=== PATIENT | male | born 1965 | race Caucasian/White ===

== ENCOUNTER 2017-03-05 19:19 | Emergency (ER) | payer SELFPAY ==
--- NOTE | 2017-03-05 19:56 | UC ---
Throat Pain/Nasal Lázaro HPI - HPI Summary HPI Summary: on and off for 1 month and worsening this weekend cough sinus and nasal pain and congestion with thick green drainage - History of Current Complaint Chief Complaint: UCGeneralIllness Stated Complaint: SINUS CONGESTION Time Seen by Provider: 03/05/17 19:45 Hx Obtained From: Patient Onset/Duration: Gradual Onset, Lasting Weeks - 4, Worse Since - past 5 days Severity: Moderate Pain Intensity: 4 Pain Scale Used: 0-10 Numeric Cough: Productive Associated Signs & Symptoms: Positive: Sinus Discomfort, Nasal Discharge - Allergies/Home Medications Allergies/Adverse Reactions: Allergies Allergy/AdvReac Type Severity Reaction Status Date / Time Cimetidine [From Tagamet HB] Allergy Fatigue Verified 03/05/17 19:28 Ciprofloxacin [From Cipro] Allergy Anxiety Verified 03/05/17 19:28 Metoclopramide [From Reglan] Allergy GI Upset Verified 03/05/17 19:28 dander Allergy Congestion Uncoded 03/05/17 19:28 Home Medications: Home Medications Atenolol [Tenormin 25 MG] 25 mg PO DAILY 03/05/17 [History Confirmed 03/05/17] Bupropion XL (NF) [Wellbutrin XL (NF)] 300 mg PO DAILY 03/05/17 [History Confirmed 03/05/17] Clopidogrel Bisulfate [Plavix] 75 mg PO 03/05/17 [History Confirmed 03/05/17] Lisinopril [Zestril 10 MG-] 10 mg PO DAILY 03/05/17 [History Confirmed 03/05/17] Mycophenolate Mofetil [Cellcept] 500 mg PO 03/05/17 [History Confirmed 03/05/17] Nifedipine [Adalat cc] 60 mg PO 03/05/17 [History] Pantoprazole TAB (NF) [Protonix TAB (NF)] 40 mg PO DAILY 03/05/17 [History Confirmed 03/05/17] Sertraline HCl [Zoloft] 100 mg PO 03/05/17 [History] Sirolimus [Rapamune] 1 mg PO 03/05/17 [History] Trazodone HCl 100 mg PO 03/05/17 [History] predniSONE TAB* [Deltasone TAB*] 1 mg PO DAILY 03/05/17 [History Confirmed 03/05] PMH/Surg Hx/FS Hx/Imm Hx Previously Healthy: No Cardiovascular History Of: Reports: Hypertension - Surgical History Surgical History: Yes Surgery Procedure, Year, and Place: 2 kidney transplants 1995, 1997 - Family History Family History: no reported cardiovascular nissues in family lineage - Social History Occupation: Employed Full-time Lives: With Family Alcohol Use: Daily Substance Use Type: None Smoking Status (MU): Current Some Day Smoker - Immunization History Most Recent Influenza Vaccination: 2014 Most Recent Pneumonia Vaccination: 2014 Review of Systems Constitutional: Negative Skin: Negative Eyes: Negative ENT: Ear Ache, Nasal Discharge Respiratory: Cough Cardiovascular: Negative Gastrointestinal: Negative Genitourinary: Negative Motor: Negative Neurovascular: Negative Musculoskeletal: Negative Neurological: Headache - sinuis Psychological: Negative All Other Systems Reviewed And Are Negative: Yes Physical Exam Triage Information Reviewed: Yes Appearance: Well-Appearing, No Pain Distress, Well-Nourished Vital Signs: Initial Vital Signs Temp 99.1 F 03/05/17 19:31 Pulse 85 03/05/17 19:31 Resp 16 03/05/17 19:31 BP 145/88 03/05/17 19:31 Pulse Ox 97 03/05/17 19:31 Vital Signs Reviewed: Yes Eye Exam: Normal Eyes: Positive: Conjunctiva Clear ENT Exam: Normal ENT: Positive: Normal ENT inspection, Hearing grossly normal, Pharynx normal, TMs normal. Negative: Nasal congestion, Nasal drainage, Tonsillar swelling, Tonsillar exudate, Trismus, Muffled/hoarse voice Dental Exam: Normal Neck exam: Normal Neck: Positive: Supple, Nontender, No Lymphadenopathy Respiratory Exam: Normal Respiratory: Positive: Chest non-tender, Lungs clear, Normal breath sounds, No respiratory distress, No accessory muscle use Cardiovascular Exam: Normal Cardiovascular: Positive: RRR, No Murmur, Pulses Normal, Brisk Capillary Refill Musculoskeletal Exam: Normal Musculoskeletal: Positive: Strength Intact, ROM Intact, No Edema Neurological Exam: Normal Neurological: Positive: Alert, Muscle Tone Normal Psychological Exam: Normal Psychological: Positive: Age Appropriate Behavior Skin Exam: Normal Throat Pain/Nasal Course/Dx - Course Assessment/Plan: Sinusitis-flanase, Augmentin, robitussin, increase fluids, nicotines cesation information - Differential Dx/Diagnosis Differential Diagnosis/HQI/PQRI: Laryngitis, Pharyngitis, Sinusitis, URI Provider Diagnoses: Sinuisitis, Nicotine dependant Discharge - Discharge Plan Condition: Stable Disposition: HOME Prescriptions: Amoxicillin/Clavulanate TAB* [Augmentin TAB 875*] 875 mg PO BID #20 tab Fluticasone NASAL SPRAY 50MCG* [Flonase NASAL SPRAY 50MCG*] 2 spray BOTH NARES DAILY #1 btl Patient Education Materials: Upper Respiratory Infection (ED), Rhinosinusitis ( ED), How to Use Nasal [place] (ED) Referrals: [facility]IAN REFERRAL [Outside] - 2 Weeks
== END 2017-03-05 20:05 | disposition home or self-care (01) ==
LOC: UCEAST 19:19
DX: J32.9 Chronic sinusitis, unspecified (principal); I10 Essential (primary) hypertension; Z94.0 Kidney transplant status; Z88.1 Allergy status to other antibiotic agents; Z88.8 Allergy status to other drugs, medicaments and biological substances; Z72.0 Tobacco use
CPT/HCPCS: 99202; G0463

== ENCOUNTER 2019-11-22 14:33 | Emergency (ER) | payer BC ==
--- OUTSIDE RECORDS SUMMARY | 2019-11-22 14:56 | XMS REPORT | Continuity of Care Document ---
:1965 External Reference #:[id number] Author Name Kennedi Subramanian MD (transmitted by agent of provider Salina Shipman) Address [address], [place] [address] Care Team Providers Name Role Phone Chris Forrester MD - Nephrology Care Team Information Preanalytics Team Lead [phone] Lashawn Brand MD - Vascular Surgery Care Team Information Preanalytics Team Lead [phone] Eduard Go MD - Gastroenterology Care Team Information Preanalytics Team Lead Daquan Nam MD - Dermatology Care Team Information Preanalytics Team Lead [phone] Zachary Sahu MD - Hematology Care Team Information Preanalytics Team Lead Belkis Winslow MD - Internal Medicine Care Team Information Preanalytics Team Lead [phone] Problems Active Problems Provider Date Essential hypertension Ghanshyam Kapadia M.D. Onset: 03/21/2017 Transplant of kidney Ghanshyam Kapadia M.D. Onset: 03/21/2017 Deep venous thrombosis of upper extremity Ghanshyam Kapadia M.D. Onset: 03/21 Mild major depression, single episode Ghanshyam Kapadia M.D. Onset: 2016 Allergic rhinitis Ghanshyam Kapadia M.D. Onset: 09/23/2017 Psychogenic impotence Ghanshyam Kapadia M.D. Onset: 09/23/2017 Mild recurrent major depression Ghanshyam Kapadia M.D. Onset: 01/12/2018 Gastroesophageal reflux disease Ghanshyam Kapadia M.D. Onset: 01/12/2018 Pure hyperglyceridemia Ghanshyam Kapadia M.D. Onset: 07/16/2018 Social History Type Date Description Comments Sex Unknown Tobacco Use Start: Unknown Patient has never smoked Smoking Status Reviewed: 10/22/19 Patient has never smoked Allergies, Adverse Reactions, Alerts Active Allergies Reaction Severity Comments Date Reglan Nausea and Vomiting Mild 03/21/2017 Tagamet flu like symptoms Moderate 03/21/2017 Cipro anxiety/paic attacks Moderate hallucinations 03/21/2017 Gemfibrozil myalgias 03/23/2019 Reglan 10/12/2019 Cipro 10/12/2019 Tagamet 10/12/2019 Medications Active Medications SIG Qnty Indications Ordering Date Provider Amoxicillin/Clavulanat take 1 tab by 10tabs J01.90 Kennedi Subramanian 2018 e Potassium mouth every 12 875-125mg hours for 5 days Tablets Lisinopril 1 by mouth every 90tabs I10 Rabia Harp MD 08/31/2019 10mg Tablets day Trazodone HCL take 1 tablet by 90tabs Rabia Harp MD 03/23/2019 150mg mouth at bedtime Tablets Mycophenolate Mofetil 2 by mouth twice 360tabs Rabia Harp MD 03/23/2019 a day 500mg Tablets Xarelto 1 by mouth every 90tabs Belkis Winslow MD 03/23/2019 20mg Tablets day Nifedipine ER take one tablet 90tabs Rabia Harp MD 03/23/2019 90mg by mouth every Tablets ER 24HR day Prednisone 1 by mouth every 90tabs Rabia Harp MD 03/23/2019 5mg Tablets day Sirolimus take 4 tablets 360tabs Rabia Harp MD 03/23/2019 1mg Tablets daily Pantoprazole Sodium 1 by mouth every 90tabs Rabia Harp MD 03/23/[address] Fluticasone Propionate 2 sprays each 48gm Rabia Harp MD 03/23/2019 nostril daily as 50mcg/Act Suspension needed Sertraline HCL 1 by mouth every 90tabs Rabia Harp MD 03/23/2019 100mg day Tablets Tadalafil take one tablet 10tabs Belkis Winslow MD 03/23/2019 20mg Tablets 1 hour before sex, not more than once every 3 days Bupropion 1 by mouth every 90tabs Rabia Harp MD 03/23/2019 Hydrochloride ER (XL) day 300mg Tablets ER 24HR Atenolol Take 1 Tablet 90tabs Belkis Winslow MD 03/23/2019 25mg Tablets Daily Aspir-81 1 by mouth every Unknown 81mg Tablets DR day Preservision Areds Unknown Tablets B Complete 1 by mouth every Unknown Tablets day Ginkgo Biloba 1 by mouth twice Unknown 60mg a day Tablets Fish Oil 1 by mouth twice Unknown 1200mg Capsules daily Vitamin C 1 by mouth every Unknown 500mg Capsules day Calcium 600+D 1 by mouth a day Unknown [id number] Tablets History Medications Losartan Potassium 1 by mouth every 30tabs I10 Belkis Winslow MD 07/13/2019 - 50mg day 08/31/2019 Tablets Tetanus,Unspecified Unknown Injection Immunizations CPT Code Status Date Vaccine Reaction Lot # [id number] Given 08/31/2019 Influenza Virus Vaccine, No immediate reaction [id number] Quadrivalent ([id number]), Derived From Cell 93216 Given 08/30/2018 Influenza Virus Vaccine, Quadrivalent, Split, Preservative Free [id number] Given 01/12/2018 Tetanus And Diptheria (Td) [id number] For Adult Use Preservative Free 39746 Given 09/01/2017 Influenza Virus Vaccine, Quadrivalent, Split, Preservative Free Vital Signs Date Vital Result Comment 10/22/2019 3:05pm Height 71 inches 5'11" Weight 192.00 lb Heart Rate 76 /min BP Systolic 124 mmHg BP Diastolic 80 mmHg Body Temperature 98.5 F O2 % BldC Oximetry 96 % BMI (Body Mass Index) 26.8 kg/m2 08/31/2019 9:14am Height 71 inches 5'11" Weight 193.00 lb Heart Rate 70 /min BP Systolic Sitting 125 mmHg BP Diastolic Sitting 83 mmHg Body Temperature 97.2 F O2 % BldC Oximetry 94 % BMI (Body Mass Index) 26.9 kg/m2 Results Description No Information Available Procedures Date Code Description Status 11/17/2017 [id number] Colonoscopy Completed 10/14/2017 547226232 Bone Mineral Density Test Completed Medical Devices Description No Information Available Encounters Type Date Location Provider Dx Diagnosis Office Visit 08/31/2019 [facility] Internal Belkis Winslow MD I10 Essential ( primary[facility] En[facility] for [facility] Office Visit 07/13/2019 10:00a [facility] Internal Belkis Winslow, I10 Essential ( primary) Medicine - [facility] hypertension Office Visit 06/15/2019 10:20a [facility] Internal Belkis Winslow, F33.0 Major depressive Medicine - [facility] MD disorder, recurrent, mild E78.5 Hyperlipidemia, unspecified I10 Essential (primary) hypertension Z94.0 Kidney transplant status K21.9 Gastro-esophageal reflux disease without esophagitis I82.622 Acute embolism and thrombosis of deep veins of l up extrem N52.1 Erectile dysfunction due to diseases classified elsewhere Assessments Date Code Description Provider 10/22/2019 J01.90 Acute sinusitis, unspecified Kennedi Subramanian MD 08/31/2019 I10 Essential (primary) hypertension Belkis Winslow MD 08/31/2019 Z23 Encounter for immunization Belkis Winslow MD 07/13/2019 I10 Essential (primary) hypertension Belkis Winslow MD 06/15/2019 F33.0 Major depressive disorder, recurrent, mild Belkis Winslow MD 06/15/2019 E78.5 Hyperlipidemia, unspecified Belkis Winslow MD 06/15/2019 I10 Essential (primary) hypertension Belkis Winslow MD 06/15/2019 Z94.0 Kidney transplant status Belkis Winslow MD 06/15/2019 K21.9 Gastro-esophageal reflux disease without Belkis Winslow MD esophagitis 06/15/2019 I82.622 Acute embolism and thrombosis of deep veins of Belkis Winslow MD left upper extremity 06/15/2019 N52.1 Erectile dysfunction due to diseases Belkis Winslow MD classified elsewhere Plan of Treatment Future Appointment(s):01/04/2020 9:40 am - Belkis Winslow MD at [facility] 9[facility]00 am - Belkis Winslow MD at [facility] Internal Medicine - [facility]10/22/2019 - Kennedi Subramanian MDJ01.90 Acute sinusitis, unspecifiedNew Medication:Amoxicillin/Clavulanate Potassium 875-125 mg - take 1 tab by mouth every 12 hours for 5 days Functional Status Description No Information Available Mental Status Description No Information Available Referrals Description No Information Available
--- OUTSIDE RECORDS SUMMARY | 2019-11-22 14:56 | XMS REPORT | Summary of Care ---
:1965 Author Organization [facility] Address [address] [place] [address] Care Team Providers Name Role Phone Ghanshyam Kapadia MD Primary Care Provider Reason for Visit Reason Comments Follow-up Encounter Details Date Type Department Care Team Description 09/24/2019 Office Visit [facility] Mirella Levine Arterial embolus and thrombosis of upper extremity (Primary Dx); Associates Johana FLORES, INTERNAL SECURITY MANAGER Radial artery occlusion, left Department of Surgery, [facility] [address] [facility] Division of Vascular [address] [place] [address] Endovascular Services [phone] [place] [address] Allergies Active Allergy Reactions Severity Noted Date Comments Ciprofloxacin Anxiety Low 04/17/2017 Hallucinations Metoclopramide Nausea And Vomiting 04/17/2017 Cimetidine 04/17/2017 Flu like symptoms documented as of this encounter (statuses as of 09/24/2019) Medications Medication Sig Dispensed Refills Start Date End Date Status predniSONE (DELTASONE) 1 Take 1 mg by 0 Active MG tablet mouth daily sirolimus (RAPAMUNE) 1 Take 2 mg by 0 Active MG tablet mouth daily MYCOPHENOLATE MOFETIL PO Take 500 mg by 0 Active mouth atenolol (TENORMIN) 25 Take 25 mg by 0 Active MG tablet mouth daily lisinopril Take 10 mg by 0 Active (PRINIVIL,ZESTRIL) 10 MG mouth daily tablet NIFEdipine (ADALAT CC) Take 90 mg by 0 Active 90 MG 24 hr tablet mouth daily sertraline (ZOLOFT) 50 Take 50 mg by 0 Active MG tablet mouth daily BUPROPION HCL ER, SR, PO Take 150 mg by 0 Active mouth TRAZODONE HCL PO Take 150 mg by 0 Active mouth CLOPIDOGREL BISULFATE PO Take 75 mg by 0 Active mouth daily aspirin 81 MG tablet Take 81 mg by 0 Active mouth daily Rivaroxaban (XARELTO) 20 Take 20 mg by 0 Active MG TABS mouth daily PANTOPRAZOLE SODIUM PO Take by mouth 0 Active daily documented as of this encounter (statuses as of 09/24/2019) Active Problems Problem Noted Date Essential (primary) hypertension 03/21/2017 Major depressive disorder, single episode, mild 03/21/2017 History of kidney transplant 03/21/2017 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/10/2016 Overview: left arm documented as of this encounter (statuses as of 09/24/2019) Social History Tobacco Use Types Packs/Day Years Used Date Never Smoker 0 Smokeless Tobacco: Never Used Alcohol Use Drinks/Week oz/Week Comments Yes ocassionally Sex Assigned at Date Recorded Not on file Job Start Date Occupation Industry Not on file Not on file Not on file Travel History Travel Start Travel End No recent travel history available. documented as of this encounter Last Filed Vital Signs Vital Sign Reading Time Taken Comments Blood Pressure 137/89 09/24/2019 10:57 AM EST Pulse 70 09/24/2019 10:57 AM EST Temperature 37.1 09/24/2019 10:57 AM EST C (98.7 F) Respiratory Rate 18 09/24/2019 10:57 AM EST Oxygen Saturation 95% 09/24/2019 10:57 AM EST Inhaled Oxygen Concentration - - Weight 83.9 kg (185 lb) 09/24/2019 10:57 AM EST Height 180.3 cm (5' 11") 09/24/2019 10:57 AM EST Body Mass Index 25.8 09/24/2019 10:57 AM EST documented in this encounter Progress Notes Mirella Levine NP - 09/24/2019 10:00 AM EST Reason for Visit: 9 month follow up HPI: Chris Beal is a 54 y.o.male a 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 He is s/p LUE AVF in 1984, s/p thrombosis of the AVF in 2010 who subsequently developed hand ischemia s/p thrombectomy and arterial reconstruction in [place], [place]. At this time he was told he had 1 vessel run off to the left hand and was started on Plavix. Most recently he underwent an arterial thrombosis of upper extremity and thromboembolectomy of the left brachial artery which was performed in [place] in 2017. Prior to leaving [place] , he had an arterial US and there was concern of thrombus formation. At thistime he was started on Xaralto. He has in been worked up for a hypercoagulable state after he had the first LUE thrombosis which was negative. He presents to the office today for a 9 month follow up of his LUE with an arterial duplex prior to his appointment today. He states he's been doing ok. Is complaining that his left hand has been falling asleep a lot more. He states his job has been requiring a lot more typing and computer work then before. He states the moment he picks up his hands from typing the tingling goes away. He states this also occurs while he is driving and has his elbow bent. He does also have a diagnosis of carpal tunnel in that left wrist. He feels this is manageable. He is currently still taking the ASA and Xarelto. Past Medical History: Diagnosis Date 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 2017 left arm Depression Essential hypertension GERD (gastroesophageal reflux disease) Hx of kidney transplant Past Surgical History: Procedure Laterality Date KIDNEY TRANSPLANT Medications: Home Medications Medication Sig aspirin 81 MG tablet Take 81 mg by mouth daily atenolol (TENORMIN) 25 MG tablet Take 25 mg by mouth daily BUPROPION HCL ER, SR, PO Take 150 mg by mouth lisinopril (PRINIVIL,ZESTRIL) 10 MG tablet Take 10 mg by mouth daily MYCOPHENOLATE MOFETIL PO Take 500 mg by mouth NIFEdipine (ADALAT CC) 90 MG 24 hr tablet Take 90 mg by mouth daily PANTOPRAZOLE SODIUM PO Take by mouth daily predniSONE (DELTASONE) 1 MG tablet Take 1 mg by mouth daily Rivaroxaban (XARELTO) 20 MG TABS Take 20 mg by mouth daily sertraline (ZOLOFT) 50 MG tablet Take 50 mg by mouth daily sirolimus (RAPAMUNE) 1 MG tablet Take 2 mg by mouth daily TRAZODONE HCL PO Take 150 mg by mouth CLOPIDOGREL BISULFATE PO Take 75 mg by mouth daily Allergies: Reglan [metoclopramide]; Tagamet [cimetidine]; and Ciprofloxacin Family History Problem Relation Age of Onset Cancer Mother Kidney disease Other Social History Tobacco History Smoking Status Never Smoker Smokeless Tobacco Use Never Used Alcohol History Alcohol Use Status Yes Comment ocassionally Drug Use Drug Use Status Not Asked Sexual Activity Sexually Active Not Asked Activities of Daily Living Not Asked ROS: Constitutional: Denies fever, chills, fatigue, and unexpected weight change HEENT: Denies visual difficulties, hearing is good Respiratory: Denies cough,shortness of breath, wheezing, chronic cough or sputum production, no hemoptysis Cardiovascular: Denies chest pain or pressure, palpitations, or leg swelling Gastrointestinal: Denies nausea, vomiting, abdominal pain, diarrhea, constipation or blood in the stool Genitourinary: Denies dysuria, urgency, frequency, hematuria, and difficulty urinating Skin: Denies rashes or lesions Extremities/Musculoskeletal: Reports tingling of the LUE. Denies muscle weakness , numbness, or back pain Neurological: Denies dizziness, seizures, difficulty with speech, weakness, or numbness. Negative for TIA or CVA Hematological: Denies bruising easily or anemia Vitals: Vitals: 09/24/19 1057 BP: 137/89 Pulse: 70 Resp: 18 Temp: 37.1 C (98.7 F) SpO2: 95% Physical Exam: General appearance: Alert, appears stated age, cooperative and no distress, ambulated independently into exam room. Head: Normocephalic, without obvious abnormality, atraumatic Eyes: Negative findings: conjunctivae and sclerae normal Lungs: Respirations unlabored on room air. Cardiac: Normal rate and rhythm. Extremities: Upper: No edema noted of the upper extremities. There is no cyanosis or rubor. There isgood capillary refill. No tissue loss noted. Lower: No edema noted of the BLE. Bilateral feet are warm with no cyanosis or rubor. No tissue loss. Motor and sensory function intact. Pulses: Doppler radial, ulnar and a the superficial mera arch of the left hand. Palpable DP, PT ofthe BLE. Skin: Skin color, texture, turgor normal. No rashes. Neuro: Alert and oriented x3. Speech clear and appropriate. Mood and Affect: Pleasant and appropriate Imaging and other Diagnostics: 09/10/19 Left Upper Extremity Duplex done at [facility]: Left Subclavian- Patent PSV 171cm/s Mid portion 111cm/s Distal portion 73cm/s Axillary artery is patent, brachial artery is patent, the antecubital artery is patent. Ulnar artery-Patent PSV 143cm/s Midportion 65cm/s Distal portion 135cm/s The radial artery is occluded. Impression: Radial artery occlusion. The remainder of the left upper extremity arterial system is patent. Overall no changes noted. Assessment: 1. Arterial embolus and thrombosis of upper extremity 2. Radial artery occlusion, left Plan: Chris Beal presents to the office for his 9 month follow up of arterial embolus of the left upper extremity. Chris is doing well and states he has noticed more tingling in his left hand as his jobrequires more computer work and typing. His arterial duplex shows no changes. His left radial arteryremains occluded while the remainder of his arterial system remains patent. On exam he has good movement and blood flow to the hand with good capillary refill. He should continue his Xarelto and ASA. Iwill see him back with a repeat arterial duplex of the LUE in 1 year. Plan was discussed with Dr. Brand. ISIDRO Austin Date: 09/24/2019 Time: 12:36 PM 12: 40 PM ESTdocumented in this encounter Plan of Treatment Date Type Specialty Care Team Description 09/29/2020 Office Visit Vascular Surgery Mirella Levine NP [address] [place] [address] [phone] Health Maintenance Due Date Last Done Comments Hepatitis C Screening (B. 1965 [id number]) MMR Vaccines (1 of 1 - Standard 1965 series) DTaP,Tdap,and Td Vaccines (1 - 1971 Tdap) HIV Screening 1977 Colon Cancer Screening 10 yrs 2014 Influenza Vaccine 08/10/2019 Pneumococcal Vaccine: 65+ Years (1 2029 of 2 - PCV13) HIB Vaccines Aged Out No longer eligible based on patient's age to complete this topic Hepatitis A Vaccines Aged Out No longer eligible based on patient's age to complete this topic Hepatitis B Vaccines Aged Out No longer eligible based on patient's age to complete this topic IPV Vaccines Aged Out No longer eligible based on patient's age to complete this topic Pneumococcal Vaccine: Pediatrics Aged Out No longer eligible based on (0 to 5 Years) and At-Risk patient's age to complete this Patients (6 to 64 Years) topic Varicella Vaccines Aged Out No longer eligible based on patient's age to complete this topic documented as of this encounter Results Not on filedocumented in this encounter Visit Diagnoses Diagnosis Arterial embolus and thrombosis of upper extremity - Primary Embolism and thrombosis of arteries of upper extremity Radial artery occlusion, left Embolism and thrombosis of unspecified artery documented in this encounter
--- OUTSIDE RECORDS SUMMARY | 2019-11-22 14:56 | XMS REPORT | Continuity of Care Document ---
:1965 External Reference #:[id number] Author Name Nesha Cartwright N.P. (transmitted by agent of provider Chrystal Beal) Address [address], [place] [address] Care Team Providers Name Role Phone Chris Forrester MD - Nephrology Care Team Information Art Objects Repairer Lashawn Brand MD - Vascular Surgery Care Team Information Art Objects Repairer [phone] Eduard Go MD - Gastroenterology Care Team Information Art Objects Repairer Daquan Nam MD - Dermatology Care Team Information Art Objects Repairer Zachary Sahu MD - Hematology Care Team Information Art Objects Repairer [phone] Belkis Winslow MD - Internal Medicine Care Team Information Art Objects Repairer Problems Active Problems Provider Date Essential hypertension [...] Patient has never smoked Smoking Status Reviewed: 11/19/19 Patient has never smoked Allergies, Adverse Reactions, Alerts Active Allergies Reaction Severity Comments Date Reglan Nausea and Vomiting Mild 03/21/2017 Tagamet flu like symptoms Moderate 03/21/2017 Cipro anxiety/paic attacks Moderate hallucinations 03/21/2017 Gemfibrozil myalgias 03/23/2019 Reglan 10/12/2019 Cipro 10/12/2019 Tagamet 10/12/2019 Medications Active Medications SIG Qnty Indications Ordering Date Provider Azithromycin two tabs day 6tabs J20.9 Nesha Cartwright, 11/19/2019 250mg one, one daily N.P. Tablets till gone Benzonatate one by mouth 30caps J20.9 Nesha Cartwright, 11/19/2019 200mg three times N.P. Capsules daily as needed for cough Lisinopril 1 by mouth every 90tabs I10 [...] 600+D 1 by mouth a day Unknown [id number] Tablets History Medications Amoxicillin/Clavulanate take 1 tab 10tabs J01.90 Kennedi 10/22/2019 - Potassium by mouth MD Moris 11/01/2019 875-125mg Tablets every 12 hours for 5 days Losartan Potassium 1 by mouth 30tabs I10 Belkis Winslow 07/13/2019 - 50mg Tablets every day 08/31/2019 Tetanus,Unspecified Unknown Injection Immunizations CPT Code Status Date Vaccine Reaction Lot # [id number] Given 08/31/2019 Influenza Virus Vaccine, No immediate reaction [id number] Quadrivalent ([id number]), Derived From Cell 98545 Given 08/30/2018 Influenza Virus Vaccine, Quadrivalent, Split, Preservative Free 78895 Given 01/12/2018 Tetanus And Diptheria (Td) [id number] For Adult Use Preservative Free 77715 Given 09/01/2017 Influenza Virus Vaccine, Quadrivalent, Split, Preservative Free Vital Signs Date Vital Result Comment 11/19/2019 3:21pm Height 71 inches 5'11" Weight 183.38 lb Heart Rate 100 /min BP Systolic Sitting 108 mmHg BP Diastolic Sitting 68 mmHg Body Temperature 98.8 F O2 % BldC Oximetry 91 % BMI (Body Mass Index) 25.6 kg/m2 10/22/2019 3:05pm Height 71 inches 5'11" Weight 192.00 lb Heart Rate 76 /min BP Systolic 124 mmHg BP Diastolic 80 mmHg Body Temperature 98.5 F O2 % BldC Oximetry 96 % BMI (Body Mass Index) 26.8 kg/m2 Results Description No Information Available Procedures Date Code Description Status 11/17/2017 [id number] Colonoscopy Completed 10/14/2017 [id number] Bone Mineral Density Test Completed Medical Devices Description No Information Available Encounters Type Date Location Provider Dx Diagnosis Office Visit 10/22/2019 [facility] Kennedi Subramanian, J01.90 Acute sinusitis, 3:00p Medicine - [facility] unspecified Office Visit 08/31/2019 [facility] Belkis Winslow MD I10 Essential ( primary) 8:40a Medicine - [facility] hypertension Z23 Encounter for immunization Office Visit 07/13/2019 10:00a [facility] Renee Ramires0 Essential ( primary) Medicine - [facility] hypertension Office Visit 06/15/2019 10:20a [facility] Belkis Winslow, F33.0 [facility] mild E78.5 Hyperlipidemia, unspecified I10 Essential (primary) hypertension Z94.0 Kidney transplant status K21.9 Gastro-esophageal reflux disease without esophagitis I82.622 Acute embolism and thrombosis of deep veins of l up extrem N52.1 Erectile dysfunction due to diseases classified elsewhere Assessments Date Code Description Provider 11/19/2019 J20.9 Acute bronchitis, unspecified Nesha Cartwright, N.P. 10/22/2019 J01.90 Acute sinusitis, unspecified Kennedi Subramanian [...] 9:40 am - Belkis Winslow MD at [facility] - [facility]12/16/2019 9:00 am - Belkis Winslow MD at [facility] - [facility]11/19/2019 - Nesha Cartwright N.P.J20.9 Acute bronchitis, unspecifiedNew Medication:Azithromycin 250 mg - two tabs day one, one daily till goneBenzonatate 200 mg - one by mouth three times daily as needed for coughNew Xrays:Chest PA & Lat 2 VWS, Ordered: 11/19/19Comments:I have sent a prescription to the pharmacy for Azithromycin. Take 2 tablets the first day then 1 tablet daily until they are gone for a total of 5 days. The medicine stays in your system for an additional 5 days. I sent in a prescription for Benzonatate 200 mg.. You may take 1 tablet 3 times daily as you need it for your cough. I am ordering a chest Xray. The office will call you with the result. Functional Status Description No Information Available Mental Status Description No Information Available Referrals Description No Information Available
[2019-11-22 15:59] LABS: Hematocrit 35 % (42-52); Hemoglobin 12.2 g/dL (14.0-18.0); Mean Corpuscular HGB Conc 35 g/dL (31-36); Mean Corpuscular Hemoglobin 31 pg (27-31); Mean Corpuscular Volume 86 fL (80-94); Mean Platelet Volume 7.6 fL (7.4-10.4); Platelet Count 538 10^3/uL (150-450); Red Cell Distribution Width 13 % (10-15); White Blood Count 12.3 10^3/uL (3.5-10.8)
[2019-11-22 16:24] LABS: Troponin I 0.04 ng/mL (<0.03)
[2019-11-22 16:38] LABS: ABS Basophils 0.1 10^3/ul (0-0.2); ABS Eosinophils 0.2 10^3/ul (0-0.6); ABS Lymphocytes 0.8 10^3/ul (1.0-4.8); ABS Monocytes 0.6 10^3/ul (0-0.8); ABS Neutrophils 10.5 10^3/ul (1.5-7.7); Eosinophil % 1.8 %; Lymphocyte % 6.8 %
[2019-11-22 16:49] LABS: ALT 161 U/L (7-52); AST 105 U/L (13-39); Albumin 3.3 g/dL (3.2-5.2); Albumin/Globulin Ratio 0.9 (1-3); Alkaline Phosphatase 353 U/L (34-104); Anion Gap 9 mmol/L (2-11); Blood Urea Nitrogen 18 mg/dL (6-24); C Reactive Protein 167.43 mg/L (<8.01); CO2 Carbon Dioxide 22 mmol/L (22-32); Calcium 9.5 mg/dL (8.6-10.3); Chloride 102 mmol/L (101-111); EGFR African American 93.9 (>60); EGFR Non-African American 77.6 (>60); Globulin 3.8 g/dL (2-4); Glucose 121 mg/dL (70-100); Potassium 4.2 mmol/L (3.5-5.0); Sodium 133 mmol/L (135-145); Total Protein 7.1 g/dL (6.4-8.9)
--- NOTE | 2019-11-22 16:54 | ED ---
Shortness of Breath - HPI Summary HPI Summary: This pt is a 54 Y/O M [facility] with a CC of SOB that occurred earlier today. He states that he has had a cough and a feeling of general weakness since 11/10/2019. He states that he had a fever for the first couple days of the onset at 100+F and was located to his sinuses and caused congestion. He also states a decrease in appetite. He states that he had a CXR from prior to his visit to [facility] and they requested a CT to r/o any CA. He states that he has had episodes of night sweats. He denies any headaches or N/ V. He states that he has been on a Z-pack for the last couple days. He has no aggravating or alleviating symptoms. He has a PMHx of smoking occasionally, double kidney transplants, and HTN. Patient on xarelto. - History of Current Complaint Chief Complaint: EDShortnessOfBreath Time Seen by Provider: 11/22/19 16:39 Hx Obtained From: Patient Onset/Duration: Sudden Onset, Lasting Weeks - 2, Still Present Timing: Constant Current Severity: Mild Aggravating Factors: Nothing Alleviating Factors: Nothing Associated Signs & Symptoms: Negative - headaches or N/V, Cough (Nonproductive) , Fever, Diaphoresis, Nasal Congestion - Allergy/Home Medications Allergies/Adverse Reactions: Allergies Allergy/AdvReac Type Severity Reaction Status Date / Time cimetidine [From Tagamet] Allergy Fatigue Verified 11/22/19 14:53 ciprofloxacin [From Cipro] Allergy Anxiety Verified 11/22/19 14:53 metoclopramide [From Reglan] Allergy GI Upset Verified 11/22/19 14:53 dander Allergy Congestion Uncoded 11/22/19 14:53 Home Medications: Home Medications Benzonatate CAP* [Tessalon 100 MG CAP*] 200 mg PO TID PRN 11/22/19 [History Confirmed 11/22/19] Sertraline* [Zoloft*] 100 mg PO DAILY 11/22/19 [History Confirmed 11/22/19] Tadalafil (NF) [Adcirca (NF)] 20 mg PO DAILY PRN 11/22/19 [History Confirmed ] predniSONE [Prednisone 5 MG TAB] 5 mg PO DAILY 11/22/19 [History Confirmed 11/22] traZODone TAB* [Desyrel TAB*] 150 mg PO BEDTIME 11/22/19 [History Confirmed ] PMH/Surg Hx/FS Hx/Imm Hx Previously Healthy: Yes Cardiovascular History: Reports: Hx Hypertension Respiratory History: Denies: Hx Asthma Musculoskeletal History: Denies: Hx Osteoporosis Sensory History: Reports: Hx Contacts or Glasses Denies: Hx Legally Blind, Hx Deafness Opthamlomology History: Reports: Hx Contacts or Glasses Denies: Hx Legally Blind EENT History: Denies: Hx Deafness - Cancer History Hx Chemotherapy: No Hx Radiation Therapy: No - Surgical History Surgical History: Yes Surgery Procedure, Year, and Place: BI-LAT 2 kidney transplants 1995, 1997; LT FOREARM ARTERIAL SURGERY; - Immunization History Immunizations Up to Date: Yes Infectious Disease History: No Infectious Disease History: Reports: History Other Infectious Disease - measles / child Denies: Traveled Outside the [place] in Last 30 Days - Family History Known Family History: Negative: Hypertension, Diabetes - Social History Occupation: Employed Full-time Lives: Alone Alcohol Use: Occasionally Hx Substance Use: No Substance Use Type: Reports: None Hx Tobacco Use: Yes Smoking Status (MU): Former Smoker Have You Smoked in the Last Year: Yes - States twice Household Exposure: No Review of Systems Positive: Fever - 100 + F, Skin Diaphoresis Positive: Shortness Of Breath, Cough Gastrointestinal: Other - POSITIVE: decreased appetite Negative: Vomiting, Nausea Negative: Headache All Other Systems Reviewed And Are Negative: Yes Physical Exam - Summary Physical Exam Summary: Constitutional: Well-developed, Well-nourished, Alert. (-) Distressed Skin: Warm, Dry HENT: Normocephalic; Atraumatic Eyes: Conjunctiva normal Neck: Musculoskeletal ROM normal neck. (-) JVD, (-) Stridor, (-) Nuchal rigidity Cardio: Rhythm regular, rate normal, Heart sounds normal; Intact distal pulses; Radial pulses are 2+ and symmetric. (-) Murmur Pulmonary/Chest wall: Effort normal. (-) Respiratory distress, (-) Wheezes, + Rales in lower lobes. Abd: Soft, (-) tenderness, (-) Distension, (-) Guarding, (-) Rebound Musculoskeletal: (-) Edema Lymph: (-) Cervical adenopathy Neuro: Alert, Oriented x3 Psych: Mood and affect Normal Triage Information Reviewed: Yes Vital Signs On Initial Exam: Initial Vitals Temp Pulse Resp BP Pulse Ox 97.8 F 90 19 121/85 96 11/22/19 14:47 11/22/19 14:47 11/22/19 14:47 11/22/19 14:47 11/22/19 14:47 Vital Signs Reviewed: Yes Procedures - Sedation Patient Received Moderate/Deep Sedation with Procedure: No Diagnostics - Vital Signs Vital Signs Temp Pulse Resp BP Pulse Ox 11/22/19 16:24 97.6 F 90 18 132/87 96 11/22/19 14:47 97.8 F 90 19 121/85 96 - Laboratory Lab Results: Lab Results 11/22/19 11/22/19 11/22/19 Range/Units 15:45 15:45 15:45 WBC 12.3 H (3.5-10.8) 10^3/uL RBC 4.00 L (4.18-5.48) 10^6 /uL Hgb 12.2 L (14.0-18.0) g/dL Hct 35 L (42-52) % MCV 86 (80-94) fL MCH 31 (27-31) pg MCHC 35 (31-36) g/dL RDW 13 (10-15) % Plt Count 538 H (150-450) 10^3/uL MPV 7.6 (7.4-10.4) fL Neut % (Auto) 85.6 % Lymph % (Auto) 6.8 % Rawlins % (Auto) 5.2 % Eos % (Auto) 1.8 % Baso % (Auto) 0.6 % Absolute Neuts (auto) 10.5 H (1.5-7.7) 10^3/ul Absolute Lymphs (auto) 0.8 L (1.0-4.8) 10^3/ul Absolute Monos (auto) 0.6 (0-0.8) 10^3/ul Absolute Eos (auto) 0.2 (0-0.6) 10^3/ul Absolute Basos (auto) 0.1 (0-0.2) 10^3/ul Absolute Nucleated RBC 0.0 10^3/ul Nucleated RBC % 0.0 Sodium 133 L (135-145) mmol/L Potassium 4.2 (3.5-5.0) mmol/L Chloride 102 (101-111) mmol/L Carbon Dioxide 22 (22-32) mmol/L Anion Gap 9 (2-11) mmol/L BUN 18 (6-24) mg/dL Creatinine 1.00 (0.67-1.17) mg/dL Est GFR ( Amer) 93.9 (>60) Est GFR (Non-Af Amer) 77.6 (>60) BUN/Creatinine Ratio 18.0 (8-20) Glucose 121 H (70-100) mg/dL Lactic Acid 0.8 (0.5-2.0) mmol/L Calcium 9.5 (8.6-10.3) mg/dL Total Bilirubin 0.50 (0.2-1.0) mg/dL AST 105 H (13-39) U/L ALT 161 H (7-52) U/L Alkaline Phosphatase 353 H (34-104) U/L Troponin I 0.04 H* (<0.03) ng/mL C-Reactive Protein 167.43 H (<8.01) mg/L B-Natriuretic Peptide (<=100) pg/mL Total Protein 7.1 (6.4-8.9) g/dL Albumin 3.3 (3.2-5.2) g/dL Globulin 3.8 (2-4) g/dL Albumin/Globulin Ratio 0.9 L (1-3) 11/22/19 Range/Units 15:45 WBC (3.5-10.8) 10^3/uL RBC (4.18-5.48) 10^6 /uL Hgb (14.0-18.0) g/dL Hct (42-52) % MCV (80-94) fL MCH (27-31) pg MCHC (31-36) g/dL RDW (10-15) % Plt Count (150-450) 10^3/uL MPV (7.4-10.4) fL Neut % (Auto) % Lymph % (Auto) % Rawlins % (Auto) % Eos % (Auto) % Baso % (Auto) % Absolute Neuts (auto) (1.5-7.7) 10^3/ul Absolute Lymphs (auto) (1.0-4.8) 10^3/ul Absolute Monos (auto) (0-0.8) 10^3/ul Absolute Eos (auto) (0-0.6) 10^3/ul Absolute Basos (auto) (0-0.2) 10^3/ul Absolute Nucleated RBC 10^3/ul Nucleated RBC % Sodium (135-145) mmol/L Potassium (3.5-5.0) mmol/L Chloride (101-111) mmol/L Carbon Dioxide (22-32) mmol/L Anion Gap (2-11) mmol/L BUN (6-24) mg/dL Creatinine (0.67-1.17) mg/dL Est GFR ( Amer) (>60) Est GFR (Non-Af Amer) (>60) BUN/Creatinine Ratio (8-20) Glucose (70-100) mg/dL Lactic Acid (0.5-2.0) mmol/L Calcium (8.6-10.3) mg/dL Total Bilirubin (0.2-1.0) mg/dL AST (13-39) U/L ALT (7-52) U/L Alkaline Phosphatase (34-104) U/L Troponin I (<0.03) ng/mL C-Reactive Protein (<8.01) mg/L B-Natriuretic Peptide 39 (<=100) pg/mL Total Protein (6.4-8.9) g/dL Albumin (3.2-5.2) g/dL Globulin (2-4) g/dL Albumin/Globulin Ratio (1-3) Result Diagrams: 11/22/19 15:45 11/22/19 15:45 Lab Statement: Any lab studies that have been ordered have been reviewed, and results considered in the medical decision making process. - CT Chest CT CT Interpretation Completed By: Radiologist Summary of CT Findings: Chest CT IMPRESSION: 1. Numerous pulmonary nodules involving all lobes of both lungs as above, highly concerning for metastatic disease or lymphoma. However, the differential includes inflammatory and infectious etiologies such as fungal disease, especially if the patient is immunocompromised. Correlate with clinical history. PET/CT may be helpful. Several lesions would be amenable to percutaneous tissue sampling if indicated. 2. Left upper lobe masslike consolidation which could represent an additional nodule versus postobstructive change/pneumonia. 3. Small right and tiny left pleural effusions. 4. Mediastinal, bilateral hilar, and upper abdominal adenopathy with secondary narrowing of right upper and middle lobe bronchi.. 5. Low-density hepatic lesions which could represent metastatic disease with infectious etiology not excluded. 6. Sternal body contour abnormality, likely representing old fracture. Correlate with clinical exam. Chronic T12 compression deformity. 7. Atrophic kidneys. Reviewed and interpreted by Dr. Stock. - EKG 1631 Cardiac Rate: NL - 78 BPM EKG Rhythm: Sinus Rhythm Summary of EKG Findings: An EKG at 1631 reveals normal sinus rhythm 78, RBBB, nml intervals. No STEMI. Dr. Stock has interpreted this report at 11/22/2019 1636. Course/Dx - Course Course Of Treatment: 54 y/o male w hx kidney transplant x2 p/w fever, chills, nightsweats and abnormal CXR. - Labs notable for mildly inc WBC, elevated LFTs and alk phos. - CT chest shows multiple nodules, concerning for metastatic disease. No clear primary. Will d/w hospitalist (Dr. Salas) for admission vs discharge w close oncologic follow up. - patient updated on CT results - Diagnoses Provider Diagnoses: Pulmonary nodule, Metastatic disease, Pneumonia - Physician Notifications Discussed Care of Patient With: Rosa Salas - At 19:16 Dr. Rosa Salas reviewed the patients case and agrees to admit the patient to [facility]. Time Discussed With Above Provider: 19:16 Instructed by Provider To: Admit As Inpatient Discharge ED - Sign-Out/Discharge Documenting (check all that apply): Patient Departure - Admit - Discharge Plan Condition: Stable Disposition: ADMITTED TO [facility] Prescriptions: Amoxicillin/Clavulanate TAB* [Augmentin TAB 875*] 875 mg PO BID 7 Days #14 tab Patient Education Materials: Needle Biopsy (DC) Print Language: SLOVAK Referrals: Belkis Winslow MD [Primary Care Provider] - Additional Instructions: As tolerated You came to the hospital with an abnormal chest x ray in the setting of sinusitis. You were found to have numerous masses in your lung and a large R sided kidney mass that we believe may be the culprit of a presumed metastatic process. You need to have a biopsy of your R non functioning kidney and we can arrange that in 48 hours from you last dose of aspirin/xarelto. We have contacted Dr. Zachary Sahu whos office will reach out to schedule a biopsy on 11/24/2019. Please hold aspirin and xarelto going home. If you have nausea, vomiting, worsening shortness or breath or fevers please return to the ED. - Billing Disposition and Condition Condition: STABLE Disposition: [facility] - Attestation Statements Document Initiated by Angy: Yes Documenting Scribe: Amy Neri Provider For Whom Angy is Documenting (Include Credential): Mavis Stock MD Scribe Attestation: IArya Susan Amquy, scribed for Mavis Stock MD on 11/23/19 at 0726. Scribe Documentation Reviewed: Yes Provider Attestation: The documentation as recorded by the Arya espinoza Susan Amquy accurately reflects the service I personally performed and the decisions made by Mavis forman MD Status of Scribe Document: Viewed
[2019-11-22] MEDS ORDERED: Iodixanol* (CONTRAST) 320 MG/ML 100 ML SDV IV ONE (18:17)
[2019-11-22] MEDS ORDERED: NS 0.9% 1000 ML** 1,000 ML IV ONE (20:27)
[2019-11-22 21:41] LABS: Troponin I 0.04 ng/mL (<0.03)
[2019-11-22 21:42] LABS: LDH 391 U/L (140-271)
[2019-11-22 22:05] LABS: Activated Partial Thrombo Time 36.8 seconds (26.0-38.0); INR 1.26 (0.82-1.09)
[2019-11-22 22:13] LABS: Uric Acid 5.2 mg/dL (4.4-7.6)
--- NOTE | 2019-11-22 22:27 | CONSULT ---
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 He came to the ED from and repeat CT chest shows "numerous mass like consolidations in DAVID and numerous blt pulm nodules, along with sig paratrachal adenopathy, RP adenopathy and hilar adeneopathy", CTH showed no acute intracranial path, CTAP wet read with V Rads showed enlarged R kidney with ~6cm mass coming off of R transplant kidney with numerous RP and and inguinal nodes. Labs showed Leuk to 12, anemia to 12.2 and plt 538, BMP unremarkable and AST/ ALT and Alk Phos are all elevated, trop mild elevated at 0.04 x2 8 hours apart EKG NSR Pt himself feels well, no decrease in PO intake no need for O2, no difficulty breathing or stridor. Endorses "B" symptoms actually since around thanksgiving with occaisoanl chills and night sweats, denies weight loss changes in PO intake , CP, orthopnea, worseningn edema, nausea, vomiting, SIFUENTES/vision changes. No travel or sick exposures, has been compliant on his immunosuppresant meds. Family History: Findings - Parents healthy and well Social History: Findings - "Retired academic" Works at a farm, lifetime non tob , scant ETOH, never illicits Past Medical History: Findings - As per above Review of Systems - Measurements Intake and Output: Intake and Output Last 24 Hours 11/20/19 11/21/19 11/22/19 11/23/19 06:59 06:59 06:59 06:59 Weight 180 lb - Review of Systems General Comments: As per HPI Objective Vital Signs - 8 hr 11/22/19 11/22/19 11/22/19 14:47 16:24 20:11 Temperature 97.8 F 97.6 F 99.2 F Pulse Rate 90 90 85 Respiratory 19 18 17 Rate Blood Pressure 121/85 132/87 141/87 (mmHg) O2 Sat by Pulse 96 96 95 Oximetry Appearance: V pleasant well appearing man in NAD Eyes: No Scleral Icterus, PERRLA Ears/Nose/Mouth/Throat: NL Teeth, Lips, Gums, Clear Oropharnyx Respiratory: Symmetrical Chest Expansion and Respiratory Effort, Clear to Auscultation Cardiovascular: NL Sounds; No Murmurs; No JVD, RRR Abdominal: NL Sounds; No Tenderness; No Distention, No Hepatosplenomegaly, - - Palpable RLQ mass assumed to be transplant kidney Lymphatic: - - R sided inguinal adenopathy, no cervical or axillary adenopathy Extremities: No Edema Skin: No Rash or Ulcers Neurological: Alert and Oriented x 3, NL Muscle Strength and Tone Result Diagrams: 11/22/19 15:45 11/22/19 15:45 Additional Lab and Data: Lab Results 11/22/19 11/22/19 11/22/19 Range/Units 15:45 15:45 15:45 WBC 12.3 H (3.5-10.8) 10^3/uL RBC 4.00 L (4.18-5.48) 10^6 /uL Hgb 12.2 L (14.0-18.0) g/dL Hct 35 L (42-52) % MCV 86 (80-94) fL MCH 31 (27-31) pg MCHC 35 (31-36) g/dL RDW 13 (10-15) % Plt Count 538 H (150-450) 10^3/uL MPV 7.6 (7.4-10.4) fL Neut % (Auto) 85.6 % Lymph % (Auto) 6.8 % Schleicher % (Auto) 5.2 % Eos % (Auto) 1.8 % Baso % (Auto) 0.6 % Absolute Neuts (auto) 10.5 H (1.5-7.7) 10^3/ul Absolute Lymphs (auto) 0.8 L (1.0-4.8) 10^3/ul Absolute Monos (auto) 0.6 (0-0.8) 10^3/ul Absolute Eos (auto) 0.2 (0-0.6) 10^3/ul Absolute Basos (auto) 0.1 (0-0.2) 10^3/ul Absolute Nucleated RBC 0.0 10^3/ul Nucleated RBC % 0.0 Sodium 133 L (135-145) mmol/L Potassium 4.2 (3.5-5.0) mmol/L Chloride 102 (101-111) mmol/L Carbon Dioxide 22 (22-32) mmol/L Anion Gap 9 (2-11) mmol/L BUN 18 (6-24) mg/dL Creatinine 1.00 (0.67-1.17) mg/dL Est GFR ( Amer) 93.9 (>60) Est GFR (Non-Af Amer) 77.6 (>60) BUN/Creatinine Ratio 18.0 (8-20) Glucose 121 H (70-100) mg/dL Lactic Acid 0.8 (0.5-2.0) mmol/L Calcium 9.5 (8.6-10.3) mg/dL Total Bilirubin 0.50 (0.2-1.0) mg/dL AST 105 H (13-39) U/L ALT 161 H (7-52) U/L Alkaline Phosphatase 353 H (34-104) U/L Troponin I 0.04 H* (<0.03) ng/mL C-Reactive Protein 167.43 H (<8.01) mg/L B-Natriuretic Peptide (<=100) pg/mL Total Protein 7.1 (6.4-8.9) g/dL Albumin 3.3 (3.2-5.2) g/dL Globulin 3.8 (2-4) g/dL Albumin/Globulin Ratio 0.9 L (1-3) 11/22/19 Range/Units 15:45 WBC (3.5-10.8) 10^3/uL RBC (4.18-5.48) 10^6 /uL Hgb (14.0-18.0) g/dL Hct (42-52) % MCV (80-94) fL MCH (27-31) pg MCHC (31-36) g/dL RDW (10-15) % Plt Count (150-450) 10^3/uL MPV (7.4-10.4) fL Neut % (Auto) % Lymph % (Auto) % Schleicher % (Auto) % Eos % (Auto) % Baso % (Auto) % Absolute Neuts (auto) (1.5-7.7) 10^3/ul Absolute Lymphs (auto) (1.0-4.8) 10^3/ul Absolute Monos (auto) (0-0.8) 10^3/ul Absolute Eos (auto) (0-0.6) 10^3/ul Absolute Basos (auto) (0-0.2) 10^3/ul Absolute Nucleated RBC 10^3/ul Nucleated RBC % Sodium (135-145) mmol/L Potassium (3.5-5.0) mmol/L Chloride (101-111) mmol/L Carbon Dioxide (22-32) mmol/L Anion Gap (2-11) mmol/L BUN (6-24) mg/dL Creatinine (0.67-1.17) mg/dL Est GFR ( Amer) (>60) Est GFR (Non-Af Amer) (>60) BUN/Creatinine Ratio (8-20) Glucose (70-100) mg/dL Lactic Acid (0.5-2.0) mmol/L Calcium (8.6-10.3) mg/dL Total Bilirubin (0.2-1.0) mg/dL AST (13-39) U/L ALT (7-52) U/L Alkaline Phosphatase (34-104) U/L Troponin I (<0.03) ng/mL C-Reactive Protein (<8.01) mg/L B-Natriuretic Peptide 39 (<=100) pg/mL Total Protein (6.4-8.9) g/dL Albumin (3.2-5.2) g/dL Globulin (2-4) g/dL Albumin/Globulin Ratio (1-3) Diagnostic Imaging: CT CHEST Patient Name: HIPOLITO HOFFMAN Medical Record#: [id number] DX CXR CHEST PA LAT 2 VWS 11/22/2019 2:11 PM FINDINGS: Lungs: There is mild narrowing of the right upper and middle lobe bronchi secondary to extrinsic compression. 5.0 x 4.4 cm focus of masslike consolidation in the anterior segment of the left upper lobe. Numerous bilateral pulmonary nodules are present involving all lobes ranging from 5 to 2.5 cm in diameter with some of the largest lesions noted in the right lower lobe, some of which have become confluent. Nodules are present along superior aspect right major fissure. There is moderate bronchial wall thickening and peribronchial density in the anterior aspect of the left upper lobe on series 3, image 23. Peripheral masslike consolidation also noted in the right upper lobe measuring approximately 2.5 cm series 3, image 18. Pleural space: There are small right and tiny left layering pleural effusions. Heart: Normal heart size. Trace pericardial fluid may be physiologic. Coronary artery calcifications are present. Aorta:. No aortic aneurysm. Mild calcific plaque in aortic arch Lymph nodes: There is extensive low-density right paratracheal adenopathy with largest individual node measuring 3.5 cm displacing the SVC anteriorly. Mildly enlarged bilateral hilar nodes are present. Confluent subcarinal adenopathy measures 3 cm AP. Mildly enlarged right hilar nodes surround and exert mass effect on the right upper and middle lobe bronchi. Retroperitoneal adenopathy is partially visualized with an aorto caval khoi mass measuring approximately 5.8 x 3.4 cm series 2, image 69. Liver: The liver is demonstrates heterogeneous attenuation and contains several low-density lesions, largest measuring approximately 2.1 cm the posterior segment of the right hepatic lobe. A 1.8 cm lesion in the left hepatic lobe on series 2, image 56 has suggestion of peripheral enhancement. Kidneys and ureters: Atrophic kidneys bilaterally. Bones/joints: No acute fracture or aggressive osseous lesion identified. There is contour abnormality of the superior sternal body which could represent old fracture. Chronic mild T12 compression deformity. CT HEAD Patient Name: HIPOLITO HOFFMAN Medical Record#: [id number] FINDINGS: Brain: There is no acute intracranial hemorrhage, extraaxial collection or midline shift. No mass identified although assessment is limited by lack of IV contrast. Alfaro white differentiation is maintained. Mild periventricular white matter lucency likely represents small vessel ischemic change. Ventricles: Normal configuration. No hydrocephalus. Bones/joints: No acute fracture or aggressive osseous lesion. Sinuses: Mucosal thickening is visible in the left frontal, left sphenoid, right maxillary, and bilateral ethmoid sinuses. Mastoid air cells: No mastoid effusion. Soft tissues: Normal. IMPRESSION: 1. No acute intracranial findings or mass identified. 2. Mild periventricular white matter lucency likely represents chronic small vessel ischemic change. 3. 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 -DDX: Infectious (given immunosuppresion), though his imaging suggests masses outside of the lung as well as diffuse adneopathy, most likely presenting oncologic process-primary renal given R transplant mass, also could consider lymphoma. Pt will need CT guided bx 48 hours from last dose of Xarelto which is 1/15 AM, he is instructed to hold xarelto and asa. His CT scans show no e/o of obstruction in L transplant kidney, adneopathy that obstructs GI tract OR mets to brain. Case discussed with Dr. Sahu over the phone several times over the course of the night. Pt is hemodynamically stable, tolerating diet, ambulating freely and per oncology safe to return to home while they coordinate an outpatient CT guided bx on 11/24. His information was sent via backline and oncology is to reach out tomorrow for first appt in clinic. #Widely metastatic dz with large 6cm mass arising from R transplanted kidney -CT scan NOT done with contrast, discussed with Dr. Sahu who reports no need for CT scan with contrast -Mass is amenable to percutaneous bx in RLQ of abdomen and pt needs to be off Xarelto for 48 hours -He has no sigsn of urinary or GI obsturction or airway compromise #Low grade fevers and sinus dz: Pt has been on azithro x4 days withongoing facial pressure and pain and sinus dz, we discuss changing abx to Augmentin 875 PO BID for addnl 7 days which also will cover any supraimposed bacterial component if CAP or post obstructive PNA is playing a role Overall, with shared decision making, conference in Oncology and discussion with pt who also discussed with his family, he elects to return to home to await outpt bx on 11/24 as there is no clinical emergency for tissue dx that outweighs the risk of interrupting or reversing his AC. Medications changes on d/c: augmentin 875 PO BID Stop Azithro, Stop Xarelto and asa
[2019-11-22] MEDS ORDERED: Amoxicillin/Clavulanate TAB* 875 MG PO ONE (23:22)
[2019-11-23 00:29] VITALS: BP 106/86
[2019-11-24 12:36] LABS: Cytomegalovirus IgG Antibody Negative (Negative); EBV Capsid Ag IgG Ab Positive (Negative); EBV Capsid Ag IgM Ab Negative (Negative); Epstein-Barr Nuclear Antigen Positive (Negative)
== END 2019-11-23 00:05 | disposition short-term general hospital (02) ==
LOC: ED 14:33
DX: R06.02 Shortness of breath (principal); Z79.01 Long term (current) use of anticoagulants; I10 Essential (primary) hypertension; Z94.0 Kidney transplant status; Z79.899 Other long term (current) drug therapy; Z72.0 Tobacco use
CPT/HCPCS: 36415; 70450; 71260; 74176; 80053; 82977; 83605; 83615; 83880; 84484; 84550; 85025; 85610; 85730; 86140; 86644; 86645; 86664; 86665; 87040; 93005; 96360; 99284; A9270-GY; Q9967

== ENCOUNTER 2019-12-04 14:54 | Emergency (ER) | payer BC ==
--- OUTSIDE RECORDS SUMMARY | 2019-12-04 15:07 | XMS REPORT | Continuity of Care Document ---
:1965 External Reference #:[id number] Author Name Liz Olivares MD (transmitted by agent of provider Jimena Lawson) Address [address] , [facility] [address] [place] [address] Care Team Providers Name Role Phone Hipolito Forrester MD - Nephrology Care Team Information Digital Advertising Analyst [phone] Lashawn Brand MD - Vascular Surgery Care Team Information Digital Advertising Analyst Eduard Go MD - Gastroenterology Care Team Information Digital Advertising Analyst [phone] Daquan Nam MD - Dermatology Care Team Information Digital Advertising Analyst [phone] Zachary Sahu MD - Hematology Care Team Information Digital Advertising Analyst Belkis Winslow MD - Internal Medicine Care Team Information Digital Advertising Analyst [phone] Problems Active Problems Provider Date Essential hypertension [...] Patient has never smoked Smoking Status Reviewed: 12/01/19 Patient has never smoked Allergies, Adverse Reactions, Alerts Active Allergies Reaction Severity Comments Date Reglan Nausea and Vomiting Mild 03/21/2017 Tagamet flu like symptoms Moderate 03/21/2017 Cipro anxiety/paic attacks Moderate hallucinations 03/21/2017 Gemfibrozil myalgias 03/23/2019 Reglan 10/12/2019 Cipro 10/12/2019 Tagamet 10/12/2019 Medications Active Medications SIG Qnty Indications Ordering Date Provider Benzonatate as needed 30caps J20.9 Nesha Cartwright, 11/19/2019 200mg N.P. Capsules Lisinopril 1 by mouth every 90tabs I10 [...] 600+D 1 by mouth a day Unknown [id number] Tablets History Medications Azithromycin two tabs day 6tabs J20.9 Nesha Varn, 11/19/2019 - 250mg one, one daily N.P. 11/29/2019 Tablets till gone Amoxicillin/Clavulana take 1 tab by 10tabs J01.90 Kennedi Subramanian, 2018 - te Potassium mouth every 12 11/01/2019 875-125mg hours for 5 Tablets days Losartan Potassium 1 by mouth 30tabs I10 Belkis Winslow MD 07/13/2019 - 50mg every day 08/31/2019 Tablets Tetanus,Unspecified Unknown Injection Immunizations CPT Code Status Date Vaccine Reaction Lot # [id number] Given 08/31/2019 Influenza Virus Vaccine, No immediate reaction [id number] Quadrivalent ([id number]), Derived From Cell 25761 Given 08/30/2018 Influenza Virus Vaccine, Quadrivalent, Split, Preservative Free 67741 Given 01/12/2018 Tetanus And Diptheria (Td) [id number] For Adult Use Preservative Free 74091 Given 09/01/2017 Influenza Virus Vaccine, Quadrivalent, Split, Preservative Free Vital Signs Date Vital Result Comment 12/01/2019 2:08pm Height 71 inches 5'11" Weight 183.00 lb Heart Rate 85 /min BP Systolic Sitting 106 mmHg right arm reg cuff BP Diastolic Sitting 71 mmHg right arm reg cuff O2 % BldC Oximetry 98 % room air BMI (Body Mass Index) 25.5 kg/m2 11/19/2019 3:21pm Height 71 inches 5'11" Weight 183.38 lb Heart Rate 100 /min BP Systolic Sitting 108 mmHg BP Diastolic Sitting 68 mmHg Body Temperature 98.8 F O2 % BldC Oximetry 91 % BMI (Body Mass Index) 25.6 kg/m2 Results Test Acquired Facility Test Result H/L Range Note Date Inr/Protime 11/22/2019 [facility] Inr 1.26 High 0.82-1.[address] [place] [address] [phone] Laboratory 11/22/2019 [facility] Partial 36.8 Normal 26.0-38. test finding [address] Thrombo seconds 0 [place] [address] Time PTT [phone] Laboratory 11/22/2019 [facility] Blood SEE RESULT [address] Culture BELOW [place], [place] [id number] [phone] Laboratory 11/22/2019 [facility] Troponin-I 0.04 ng/mL Critical <0.[address] (TnI) high [place], [place] [id number] [phone] GGTP 355 U/L High 9-64.0 LDH 391 U/L High 140-271 Uric Acid 5.2 mg/dL Normal 4.4-7.6 Blood Culture SEE RESULT BELOW 4 CMV Igg/Igm 11/22/2019 [facility] Cytomegalovirus IgG Negative Negative [address] [place] [address] [phone] Cytomegalovirus IgM Antibody Negative Negative Ebv Ava Hassan 11/22/2019 [facility] Ebv Capsid Positive Negative Comprehensive [address] [place] [address] [phone] Ebv Capsid Ag IgM Ab Negative Negative Ava-Hassan Nuclear Antigen Positive Negative Ava-Hassan Virus Interp See Comment 6 Laboratory test 11/22/2019 [facility] Lactic Acid 0.8 mmol/L Normal 0.5-2.0 [address] [place] [address] [phone] B-Type Natriuretic Peptide BNP 39 pg/mL <=100 CBC Auto 11/22/2019 [facility] White Blood 12.3 10^3/uL High 3.5-10.[address] [place] [address] [phone] Red Blood Count 4.00 10^6/uL Low 4.18-5.48 Hemoglobin 12.2 g/dL Low 14.0-18.0 Hematocrit 35 % Low 42-52 Mean Corpuscular Volume 86 fL Normal 80-94 Mean Corpuscular Hemoglobin 31 pg Normal 27-31 Mean Corpuscular HGB Conc 35 g/dL Normal 31-36 Red Cell Distribution Width 13 % Normal 10-15 Platelet Count 538 10^3/uL High 150-450 Mean Platelet Volume 7.6 fL Normal 7.4-10.4 Abs Neutrophils 10.5 10^3/uL High 1.5-7.7 Abs Lymphocytes 0.8 10^3/uL Low 1.0-4.8 Abs Monocytes 0.6 10^3/uL Normal 0-0.8 Abs Eosinophils 0.2 10^3/uL Normal 0-0.6 Abs Basophils 0.1 10^3/uL Normal 0-0.2 Abs Nucleated RBC 0.0 10^3/uL Granulocyte % 85.6 % Lymphocyte % 6.8 % Monocyte % 5.2 % Eosinophil % 1.8 % Basophil % 0.6 % Nucleated Red Blood Cells % 0.0 Laboratory 11/22/2019 [facility] Troponin-I 0.04 Critical < 0.03 8 test finding [address] (TnI) ng/[place] [address] [phone] Comp Metabolic 11/22/2019 [facility] Sodium 133 Low 135-[address] mmol/[place] [address] [phone] Potassium 4.2 mmol/L Normal 3.5-5.0 Chloride 102 mmol/L Normal 101-111 Co2 Carbon Dioxide 22 mmol/L Normal 22-32 Anion Gap 9 mmol/L Normal 2-11 Glucose 121 mg/dL High 70-100 Blood Urea Nitrogen 18 mg/dL Normal 6-24 Creatinine 1.00 mg/dL Normal 0.67-1.17 BUN/Creatinine Ratio 18.0 Normal 8-20 Calcium 9.5 mg/dL Normal 8.6-10.3 Total Protein 7.1 g/dL Normal 6.4-8.9 Albumin 3.3 g/dL Normal 3.2-5.2 Globulin 3.8 g/dL Normal 2-4 Albumin/Globulin Ratio 0.9 Low 1-3 Total Bilirubin 0.50 mg/dL Normal 0.2-1.0 Alkaline Phosphatase 353 U/L High 34-104 Alt 161 U/L High 7-52 Ast 105 U/L High 13-39 Egfr Non- 77.6 >60 Egfr 93.9 >60 9 Laboratory test 11/22/2019 [facility] C Reactive 167.43 mg/L High <8.[address] [place] [address] [phone] Standard intensity warfarin therapeutic range: 2.0-3.0 High intensity warfarin therapeutic range: 2.5-3.5 2 SEE RESULT BELOW Name: BEALHIPOLITO Vern : [address]: Mavis Stock MD Acct: [id number] Unit: [id number] AGE: 54 Location: ED Re11/22/19 SEX: M Status: DEP ER SPEC: [id number] UMER: 11/22/[address] [facility] [address]: Jayla Taveras MD REQ: [id number] RECD: 11/22/19 STATUS: ALEXA FREY DR: Mavis Winslow MD _ SOURCE: BLOOD,VENO SPDESC: ORDERED: Blood Cult Procedure Result Reported Site Aerobic Culture Bottle Final 11/27/19- 2154 ML No Growth Day 5 Anaerobic Culture Bottle Final 11/27/19- 2152 ML No Growth Day 5 * ML - Main Lab . END OF REPORT DEPARTMENT OF PATHOLOGY, [address] [place] [address] Mani Dooley M.D. Director [facility] # [id number] 3 Result TnIDx:0.04 Called to [id number] at: 21:40:16 by:[id number] Read back by: [id number] Troponin-I testing on Plasma Separator Tubes (PST) has a known false positive rate of 0.20-0.40%. All positive troponins reflex immediately to secondary confirmatory testing. Using the [employer] DxI 800 Access Immunoassay systems, the 99th percentile upper reference limit was demonstrated to be < 0.03 ng/mL. 4 SEE RESULT BELOW Name: HIPOLITO BEAL : [address]: Mavis Stock MD Acct: [id number] Unit: [id number] AGE: 54 Location: ED Re11/22/19 SEX: M Status: DEP ER SPEC: [id number] UMER: 11/22/[address] [facility] [address]: Rosa Salas MD REQ: [id number] RECD: 11/22/19 STATUS: ALEXA FREY DR: Mavis Winslow MD _ [facility]: [facility] ORDERED: Blood Cult Procedure Result Reported Site Aerobic Culture Bottle Final 11/27/192115 ML No Growth Day 5 Anaerobic Culture Bottle Final 11/27/192115 ML No Growth Day 5 * ML - Main Lab . END OF REPORT DEPARTMENT OF PATHOLOGY, [address] [place] [address] Mani Dooley M.D. Director [facility] # [id number] 5 Test Performed by: [facility] - [address] [address] Mail Weigher: Aneudy Aguirre M.D. Ph.D.; CLIA# [id number] 6 RESULT: Results suggest past infection. ADDITIONAL INFORMATION In most populations, at least 90% of the adult population will have been infected with EBV sometime in the past and therefore, will be positive for anti-VCA/IgG and anti- EBNA. Antibodies to EBNA develop 6-8 weeks after primary infection and remain present for life. Presence of VCA/ IgM antibodies indicates recent primary infection with EBV. Test Performed by: [facility] - [facility] [address] [place] [address] Mail Weigher: Aneudy Aguirre M.D. Ph.D.; CLIA# [id number] 7 [facility] Severe Sepsis and Septic Shock Management Bundle Measure requires all lactic acids initially measuring >2.0 mmol/L be repeated. 8 Result TnIDx:0.04 Called to [id number] at: 16:23:20 by:[id number] Read back by: [id number] Troponin-I testing on Plasma Separator Tubes (PST) has a known false positive rate of 0.20-0.40%. All positive troponins reflex immediately to secondary confirmatory testing. Using the [employer] DxI 800 Access Immunoassay systems, the 99th percentile upper reference limit was demonstrated to be < 0.03 ng/mL. 9 Because ethnic data is not always readily available, this report includes an eGFR for both -Americans and non- Americans. The National Kidney Disease Education Program (NKDEP) does not endorse the use of the MDRD equation for patients that are not between the ages of 18 and 70, are , have extremes of body size, muscle mass, or nutritional status, or are non- or non-. According to the National Kidney Foundation, irrespective of diagnosis, the stage of the disease is based on the level of kidney function: Stage Description GFR(mL/min/1.73 m(2)) 1 Kidney damage with normal or decreased GFR 90 2 Kidney damage with mild decrease in GFR 60-89 3 Moderate decrease in GFR 30-59 4 Severe decrease in GFR 15-29 5 Kidney failure <15 (or dialysis) Procedures Date Code Description Status 11/17/2017 15132307 Colonoscopy Completed 10/14/2017 [id number] Bone Mineral Density Test Completed Medical Devices Description No Information Available Encounters Type Date Location Provider Dx Diagnosis Office Visit 11/19/2019 [facility] Nesha Cartwright, J20.9 [facility] , [facility] Office Visit 10/22/2019 [facility] Kennedi Subramanian J01.90 Acute sinusitis, 3:00[facility] Office Visit 08/31/2019 [facility] Belkis Winslow MD I10 Essential ( primary) 8:40a [facility] Z23 Encounter for immunization Office Visit 07/13/2019 10:00a [facility] Renee Ramires0 Essential ( primary) [facility] 06/15/2019 10:20a [facility] Belkis Winslow F33.0 Major depressive [facility], recurrent, mild E78.5 Hyperlipidemia, unspecified I10 Essential (primary) hypertension Z94.0 Kidney transplant status K21.9 Gastro-esophageal reflux disease without esophagitis I82.622 Acute embolism and thrombosis of deep veins of l up extrem N52.1 Erectile dysfunction due to diseases classified elsewhere Assessments Date Code Description Provider 12/01/2019 Z94.0 Kidney transplant status Liz Olivares MD 12/01/2019 N18.1 Chronic kidney disease, stage 1 Liz Olivares MD 12/01/2019 C34.00 Malignant neoplasm of unspecified main Liz Olivares MD bronchus 11/19/2019 J20.9 Acute bronchitis, unspecified Nesha Cartwright, N.P. 10/22/2019 J01.90 Acute sinusitis, unspecified Kennedi Subramanian MD 08/31/2019 I10 Essential (primary) hypertension Beklis Winslow MD 08/31/2019 Z23 Encounter for immunization [...] Acute embolism and thrombosis of deep veins Belkis Winslow MD of left upper extremity 06/15/2019 N52.1 Erectile dysfunction due to diseases Belkis Winslow MD classified elsewhere Plan of Treatment Future Appointment(s):01/03/2020 10:00 am - Liz Olivares MD at [facility]01/25/2020 9:40 am - Belkis Winslow MD at [facility] - [facility]12/16/2019 9:00 am - Belkis Winslow MD at [facility] - [facility]12/01 - Liz Olivares MDZ94.0 Kidney transplant statusFollow up:1 month f/ u with labsN18.1 Chronic kidney disease, stage 1C34.00 Malignant neoplasm of unspecified main bronchus Functional Status Description No Information Available Mental Status Description No Information Available Referrals Description No Information Available
--- NOTE | 2019-12-04 15:36 | ED ---
Neurological HPI - HPI Summary HPI Summary: This patient is a 54 year old male presenting to [facility] with a chief complaint of possible stroke discovered during follow up with lung cancer to check for metastasis of small cell carcinoma. He knows of metastasis to the liver. Pt was called on the way home and told that MRI looks like he may have had a stroke in the last two days. He states he has had some double vision worsened over the last week or so. He denies slurred speech and they have been looking for defects. The patient takes Xarelto and Aspirin. He takes immunosuppressents for a transplant. - History of Current Complaint Chief Complaint: EDNeurologicalDeficit Stated Complaint: POSS STROKE PER PT Time Seen by Provider: 12/04/19 15:21 Hx Obtained From: Patient Onset/Duration: Started days ago Current Severity: None Pain Intensity: 0 Pain Scale Used: 0-10 Numeric - Allergy/Home Medications Allergies/Adverse Reactions: Allergies Allergy/AdvReac Type Severity Reaction Status Date / Time cimetidine [From Tagamet] Allergy Fatigue Verified 12/04/19 15:00 ciprofloxacin [From Cipro] Allergy Anxiety Verified 12/04/19 15:00 metoclopramide [From Reglan] Allergy GI Upset Verified 12/04/19 15:00 dander Allergy Congestion Uncoded 12/04/19 07:23 PMH/Surg Hx/FS Hx/Imm Hx Endocrine/Hematology History: Denies: Hx Diabetes Cardiovascular History: Reports: Hx Hypertension Denies: Hx Pacemaker/ICD Respiratory History: Denies: Hx Asthma History: Denies: Hx Renal Disease Musculoskeletal History: Denies: Hx Osteoporosis Sensory History: Reports: Hx Contacts or Glasses Denies: Hx Legally Blind, Hx Deafness, Hx Hearing Aid Opthamlomology History: Reports: Hx Contacts or Glasses Denies: Hx Legally Blind Psychiatric History: Denies: Hx Panic Disorder - Cancer History Cancer Type, Location and Year: SMALL CELL LUNG -NEWLY DIAGNOSED-NO TREATMENT AT THIS TIME 12/01/2019 Hx Chemotherapy: No Hx Radiation Therapy: No - Surgical History Surgery Procedure, Year, and Place: BI-LAT 2 kidney transplants 1995, 1997; LT FOREARM ARTERIAL SURGERY;. LEFT UPPER ARM FRACTURE CHILD-METAL REMOVED Infectious Disease History: No Infectious Disease History: Reports: History Other Infectious Disease - measles / child Denies: Traveled Outside the [place] in Last 30 Days - Family History Known Family History: Negative: Hypertension, Diabetes Family History: no reported cardiovascular nissues in family lineage - Social History Alcohol Use: Occasionally Hx Substance Use: No Substance Use Type: Reports: None Hx Tobacco Use: Yes Smoking Status (MU): Former Smoker Have You Smoked in the Last Year: Yes - States twice Review of Systems Positive: Diplopia Negative: Slurred Speech All Other Systems Reviewed And Are Negative: Yes Physical Exam - Summary Physical Exam Summary: Constitutional: Well-developed, Well-nourished, Alert. (-) Distressed Skin: Warm, Dry HENT: Normocephalic; Atraumatic Eyes: Conjunctiva normal Neck: Musculoskeletal ROM normal neck. (-) JVD, (-) Stridor, (-) Tracheal deviation Cardio: Rhythm regular, rate normal, Heart sounds normal; Intact distal pulses. Radial pulses are 2+ and symmetric. (-) Murmur Pulmonary/Chest wall: Effort normal. (-) Respiratory distress, (-) Wheezes, (-) Rales Abd: Soft. (-) Tenderness, (-) Distension, (-) Guarding, (-) Rebound Musculoskeletal: (-) Edema Lymph: (-) Cervical adenopathy Neuro: Alert, Oriented x3, Strength normal, Cranial nerves II-XII are grossly intact. (-) Dysmetria, (-) Nystagmus, (-) Ataxia by finger to nose testing, (-) Sensory deficit. Psych: Mood and affect Normal Triage Information Reviewed: Yes Vital Signs On Initial Exam: Initial Vitals Temp Pulse Resp BP Pulse Ox 98.5 F 87 16 124/86 97 12/04/19 14:57 12/04/19 14:57 12/04/19 14:57 12/04/19 14:57 12/04/19 14:57 Vital Signs Reviewed: Yes Procedures - Sedation Patient Received Moderate/Deep Sedation with Procedure: No Diagnostics - Vital Signs Vital Signs Temp Pulse Resp BP Pulse Ox 12/04/19 14:57 98.5 F 87 16 124/86 97 - Laboratory Result Diagrams: 12/04/19 16:09 12/04/19 16:09 Lab Statement: Any lab studies that have been ordered have been reviewed, and results considered in the medical decision making process. - EKG 1609 Cardiac Rate: NL - 79 BPM EKG Rhythm: Sinus Rhythm Summary of EKG Findings: No STEMI. ED physician has reviewed and interpreted this EKG. NIH Scale - NIH Scale Level of Consciousness: Alert/Keenly Responsive Ask Patient the Month and His/Her Age: Both Correct Ask Pt to Open/Close Eyes and Lithopress Operator/Release Non-Paretic Hand: Both Correctly Best Gaze (Only Horizontal Eye Movement): Normal Visual Field Testing: No Visual Loss Facial Paresis-Pt to Smile & Close Eyes or Grimace Symmetry: Normal/Symmetrical Motor Function - Right Arm: No Drift-Holds 10 Seconds Motor Function - Left Arm: No Drift-Holds 10 Seconds Motor Function - Right Leg: No Drift-Holds 10 Seconds Motor Function - Left Leg: No Drift-Holds 10 Seconds Limb Ataxia-Must be out of Proportion to Weakness Present: Absent Sensory (Use Pinprick to Test Arms/Legs/Trunk/Face): Normal Best Language (Describe Picture, Name Items): No Aphasia Dysarthria (Read Several Words): Normal Extinction and Inattention: No Abnormality Total Score: 0 Re-Evaluation - Re-Evaluation First Eval Re-Evaluation Time: 16:42 Comment: Cardotid ultrasounds cannot be performed and read by radiology on an emergency basis, therefore Carotid ultrasound performed at bedside: No stenosis found. Course/Dx - Course Course Of Treatment: Patient is here after having a subacute infarct identified on MRI which was originally performed to evaluate for brain metastatic disease. Patient has an NIH stroke scale of 0 with no neurologic deficits. Patient had blood performed which is grossly unremarkable. Patient had an EKG which showed a right bundle branch block with no evidence of A. fib. Dr. Johnson was called and he recommended carotid ultrasound that was not able to be performed formally due to possible palsy. An informal one was performed myself and the security alarm technician which showed no stenosis. Patient followed with Dr. Johnson on Friday - Diagnoses Provider Diagnoses: CVA (cerebral vascular accident) - Physician Notifications Discussed Care Of Patient With: Manpreet Johnson - Neurology Time Discussed With Above Provider: 16:14 - Ultrasound of Carotids and discharge . Discharge ED - Sign-Out/Discharge Documenting (check all that apply): Patient Departure - Discharge - Discharge Plan Condition: Stable Disposition: HOME Patient Education Materials: Stroke (DC) Referrals: Manpreet Johnson MD [Medical Doctor] - Zachary Sahu MD [Family Provider] - Additional Instructions: Call Dr. Johnson on Friday he is expecting your call. Keep your appointment with Dr. Sahu on Friday. Return to ED with changes in vision, one-sided weakness, one -sided numbness, or confusion. These are signs of stroke and are time sensitive. - Billing Disposition and Condition Condition: STABLE Disposition: Home - Attestation Statements Document Initiated by Jesusibe: Yes Documenting Scribe: Darwin Wadr Provider For Whom Scribe is Documenting (Include Credential): Jarred Abreu MD Scribe Attestation: Darwin Leon, scribed for Jarred Abreu MD on 12/04/19 at 1701. Scribe Documentation Reviewed: Yes Provider Attestation: The documentation as recorded by the Darwin espinoza accurately reflects the service I personally performed and the decisions made by , Jarred Abreu MD Status of Scribe Document: Viewed
[2019-12-04 16:20] LABS: ABS Basophils 0.1 10^3/ul (0-0.2); ABS Eosinophils 0.2 10^3/ul (0-0.6); ABS Monocytes 0.4 10^3/ul (0-0.8); ABS Neutrophils 8.4 10^3/ul (1.5-7.7); Hematocrit 35 % (42-52); Hemoglobin 12.1 g/dL (14.0-18.0); Lymphocyte % 10.3 %; Mean Corpuscular HGB Conc 35 g/dL (31-36); Mean Corpuscular Hemoglobin 30 pg (27-31); Mean Corpuscular Volume 85 fL (80-94); Mean Platelet Volume 7.2 fL (7.4-10.4); Platelet Count 607 10^3/uL (150-450); Red Blood Count 4.12 10^6 /uL (4.18-5.48); Red Cell Distribution Width 14 % (10-15); White Blood Count 10.2 10^3/uL (3.5-10.8)
[2019-12-04 16:35] LABS: Activated Partial Thrombo Time 39.1 seconds (26.0-38.0); INR 1.15 (0.82-1.09)
[2019-12-04 16:38] LABS: Albumin 3.4 g/dL (3.2-5.2); BUN/Creatinine Ratio 10.2 (8-20); EGFR African American 85.9 (>60); Globulin 3.3 g/dL (2-4); HDL Cholesterol 30.3 mg/dL; Potassium 3.8 mmol/L (3.5-5.0); Total Bilirubin 0.3 mg/dL (0.2-1.0); Total Protein 6.7 g/dL (6.4-8.9)
[2019-12-04 16:39] LABS: Troponin I 0.01 ng/mL (<0.03)
[2019-12-04 16:58] VITALS: BP 148/97
== END 2019-12-04 16:55 | disposition home or self-care (01) ==
LOC: ED 14:54
DX: I63.9 Cerebral infarction, unspecified (principal); H53.2 Diplopia; R29.700 NIHSS score 0; I45.10 Unspecified right bundle-branch block; C34.90 Malignant neoplasm of unspecified part of unspecified bronchus or lung; C78.7 Secondary malignant neoplasm of liver and intrahepatic bile duct; I10 Essential (primary) hypertension; Z79.01 Long term (current) use of anticoagulants; Z79.82 Long term (current) use of aspirin; Z94.0 Kidney transplant status; Z88.1 Allergy status to other antibiotic agents; Z88.8 Allergy status to other drugs, medicaments and biological substances; Z91.09 Other allergy status, other than to drugs and biological substances; Z87.891 Personal history of nicotine dependence
CPT/HCPCS: 36415; 80053; 80061; 84484; 85025; 85610; 85730; 93005; 99283

== ENCOUNTER 2020-01-07 23:45 | Emergency (ER) | payer BC ==
--- NOTE | 2020-01-08 00:23 | ED ---
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 Patient denies recent fevers or trauma. Patient states he has had low back pain for approximately 2 months however today it was acutely worse with new onset radiculopathy. Patient denies recent illness, fever, chest pain, abdominal pain and pain with urination , nausea, vomiting, diarrhea. Patient is taking Flexeril prior to arrival for his symptoms. Surgical history and family history is noncontributory. Patient is able to ambulate. - History of Current Complaint Chief Complaint: EDBackInjuryPain Stated Complaint: BACK/LEG PAIN PER PT Time Seen by Provider: 01/08/20 00:08 Hx Obtained From: Patient Onset/Duration: Gradual Onset Onset/Duration: Started Weeks Ago, Atraumatic Timing: Constant Severity Initially: Severe Severity Currently: Severe Pain Intensity: 10 Pain Scale Used: 0-10 Numeric Character: Aching Aggravating Symptom(s): Movement, Lifting, Bending Alleviating Symptom(s): Rest Associated Signs And Symptoms: Positive: Numbness - Allergies/Home Medications Allergies/Adverse Reactions: Allergies Allergy/AdvReac Type Severity Reaction Status Date / Time cimetidine [From Tagamet] Allergy Fatigue Verified 01/08/20 00:28 ciprofloxacin [From Cipro] Allergy Anxiety Verified 01/08/20 00:28 metoclopramide [From Reglan] Allergy GI Upset Verified 01/08/20 00:28 dander Allergy Congestion Uncoded 01/08/20 00:28 Home Medications: Home Medications RX: Atenolol [Tenormin 25 MG] 25 mg PO DAILY 03/05/17 [History Confirmed ] RX: Bupropion XL (NF) [Wellbutrin XL 300 MG (NF)] 300 mg PO DAILY 03/05/17 [ History Confirmed 11/22/19] RX: Lisinopril [Zestril 10 MG-] 10 mg PO DAILY 03/05/17 [History Confirmed 11/22] RX: Mycophenolate Mofetil [Cellcept] 1,000 mg PO BID 03/05/17 [History Confirmed 11/22/19] RX: NIFEdipine [Adalat cc] 90 mg PO DAILY 03/05/17 [History Confirmed 11/22/19] RX: Pantoprazole TAB * [Protonix TAB*] 40 mg PO DAILY 03/05/17 [History Confirmed 11/22/19] RX: Sirolimus [Rapamune] 4 tab PO DAILY 03/05/17 [History Confirmed 11/22/19] Amoxicillin/Clavulanate TAB* [Augmentin TAB 875*] 875 mg PO BID 7 Days #14 tab 11/22/19 [Rx] RX: Benzonatate CAP* [Tessalon 100 MG CAP*] 200 mg PO TID PRN 11/22/19 [History Confirmed 11/22/19] RX: Sertraline* [Zoloft*] 100 mg PO DAILY 11/22/19 [History Confirmed 11/22/19] RX: Tadalafil (NF) [Adcirca (NF)] 20 mg PO DAILY PRN 11/22/19 [History Confirmed 11/22/19] RX: predniSONE [Prednisone 5 MG TAB] 5 mg PO DAILY 11/22/19 [History Confirmed 11/22/19] RX: traZODone TAB* [Desyrel TAB*] 150 mg PO BEDTIME 11/22/19 [History Confirmed 11/22/19] oxyCODONE/Acetamin 5/325 MG* [Percocet 5/325 TAB*] 1 tab PO Q4H PRN #12 tab MDD 6 01/08/20 [Rx] PMH/Surg Hx/FS Hx/Imm Hx Endocrine/Hematology History: Denies: Hx Diabetes Cardiovascular History: Reports: Hx Hypertension Denies: Hx Pacemaker/ICD Respiratory History: Denies: Hx Asthma History: Denies: Hx Renal Disease Musculoskeletal History: Denies: Hx Osteoporosis Sensory History: Reports: Hx Contacts or Glasses Denies: Hx Legally Blind, Hx Deafness, Hx Hearing Aid Opthamlomology History: Reports: Hx Contacts or Glasses Denies: Hx Legally Blind Psychiatric History: Denies: Hx Panic Disorder - Cancer History Cancer Type, Location and Year: SMALL CELL LUNG -NEWLY DIAGNOSED-NO TREATMENT AT THIS TIME 12/01/2019 Hx Chemotherapy: No Hx Radiation Therapy: No - Surgical History Surgery Procedure, Year, and Place: BI-LAT 2 kidney transplants 1995, 1997; LT FOREARM ARTERIAL SURGERY;. LEFT UPPER ARM FRACTURE CHILD-METAL REMOVED Infectious Disease History: No Infectious Disease History: Reports: History Other Infectious Disease - measles / child Denies: Traveled Outside the [place] in Last 30 Days - Family History Known Family History: Negative: Hypertension, Diabetes Family History: no reported cardiovascular nissues in family lineage - Social History Alcohol Use: Occasionally Hx Substance Use: No Substance Use Type: Reports: None Hx Tobacco Use: Yes Smoking Status (MU): Former Smoker Have You Smoked in the Last Year: Yes - States twice Review of Systems Constitutional: Negative Eyes: Negative ENT: Negative Cardiovascular: Negative Respiratory: Negative Gastrointestinal: Negative Genitourinary: Negative Positive: Arthralgia, Myalgia Skin: Negative Neurological/Mental Status: Negative Psychological: Normal All Other Systems Reviewed And Are Negative: Yes Physical Exam - Summary Physical Exam Summary: Patient is in no acute distress. Patient has pain palpation of the thoracic spine. Patient complains of pain with palpation of the paraspinal muscles of the low back. There is no obvious ecchymosis, erythema, edema of the back. Patient is able to ambulate. Patient endorses radiculopathy bilaterally with straight leg raise. Triage Information Reviewed: Yes Vital Signs On Initial Exam: Initial Vitals Temp Pulse Resp BP Pulse Ox 98.0 F 70 18 160/98 98 01/07/20 23:47 01/07/20 23:47 01/07/20 23:47 01/07/20 23:47 01/07/20 23:47 Vital Signs Reviewed: Yes Appearance: Positive: Well-Appearing, No Pain Distress, Well-Nourished Skin: Positive: Warm, Skin Color Reflects Adequate Perfusion Eyes: Positive: EOMI, ANGELITA ENT: Positive: Hearing grossly normal Respiratory/Lung Sounds: Positive: Clear to Auscultation, Breath Sounds Present Cardiovascular: Positive: RRR, S1, S2 Abdomen Description: Positive: Nontender, Soft Bowel Sounds: Positive: Present Musculoskeletal: Positive: Strength/ROM Intact Neurological: Positive: Sensory/Motor Intact, Alert, Oriented to Person Place, Time, Facial Symmetry, Speech Normal. Negative: Normal Gait - Patient has an antalgic gait. Psychiatric: Positive: Normal, Affect/Mood Appropriate AVPU Assessment: Alert Procedures - Sedation Patient Received Moderate/Deep Sedation with Procedure: No Diagnostics - Vital Signs Vital Signs Temp Pulse Resp BP Pulse Ox 01/07/20 23:47 98.0 F 70 18 160/98 98 - Laboratory Result Diagrams: 01/08/20 00:30 01/08/20 00:30 Lab Statement: Any lab studies that have been ordered have been reviewed, and results considered in the medical decision making process. Back Pain Course/Dx - Course Course Of Treatment: Patient was evaluated emergency department today for back pain. Vitals noted and stable. Patient afebrile. Labs returned showing no significant abnormalities. There is no leukocytosis and no electrical disturbance. Platelets are mildly elevated at 524. CT with contrast was done of the lumbar spine as well as thoracic spine. CT of the lumbar spine finds no acute medical process or fracture. CT of the thoracic spine shows destruction of the spinous process of T8 which extends into the posterior elements. Associated soft tissue mass. Abnormal soft tissue located within the neural foramen at T8-T9. Oncology, Dr. Sahu was consulted at 314 for disposition of the patient. Soft tissue within the neural foramen at T8 and T9 appears consistent with metastatic cancer. Dr. Sahu believed the patient was fit for outpatient follow-up for MRI on Friday. Patient discharged with outpatient follow-up. There appeared to be no acute spinal emergency requiring intervention at this time. - Diagnoses Differential Diagnosis/HQI/PQRI: Positive: Cauda Equina Syndrome, Compressive Cord Syndrome, Epidural Abscess, Fracture, Herniated Disc, Neoplasm, Strain, Sprain Provider Diagnoses: Back pain, Neoplasm of thoracic spine - Provider Notifications Discussed Care Of Patient With: Zachary Sahu - patient fit for outpatient follow -up. Should have MRI on Friday. Discharge ED - Sign-Out/Discharge Documenting (check all that apply): Patient Departure - Discharge Plan Condition: Stable Disposition: HOME Prescriptions: oxyCODONE/Acetamin 5/325 MG* [Percocet 5/325 TAB*] 1 tab PO Q4H PRN #12 tab MDD 6 PRN Reason: Pain - Severe Patient Education Materials: Back Pain (ED) Referrals: Belkis Winslow MD [Primary Care Provider] - Zachary Sahu MD [Medical Doctor] - 3 Days Additional Instructions: You were seen in the emergency department today due to back pain. Imaging studies were done which found evidence of a metastatic lesion to your T8-T9 thoracic vertebrae. Dr. Sahu was consulted and suggested you follow-up with him for outpatient treatment and evaluation on Friday. Please return to activity as tolerated. Please return to the emergency department immediately if you develop any new or worsening symptoms. - Billing Disposition and Condition Condition: STABLE Disposition: Home
[2020-01-08 00:47] LABS: ABS Lymphocytes 1.2 10^3/ul (1.0-4.8); ABS Monocytes 0.5 10^3/ul (0-0.8); ABS Neutrophils 4.9 10^3/ul (1.5-7.7); Eosinophil % 0.7 %; Hematocrit 39 % (42-52); Hemoglobin 13.1 g/dL (14.0-18.0); Mean Corpuscular HGB Conc 34 g/dL (31-36); Mean Corpuscular Hemoglobin 30 pg (27-31); Mean Corpuscular Volume 88 fL (80-94); Mean Platelet Volume 6.6 fL (7.4-10.4); Nucleated Red Blood Cells % 0.1; Platelet Count 524 10^3/uL (150-450); Red Blood Count 4.37 10^6 /uL (4.18-5.48); Red Cell Distribution Width 19 % (10-15); White Blood Count 6.7 10^3/uL (3.5-10.8)
--- OUTSIDE RECORDS SUMMARY | 2020-01-08 01:04 | XMS REPORT | Summary of Care ---
:1965 Author Organization [facility] Address [address] [place] [id number] Care Team Providers Name Role Phone Belkis Winslow MD Primary Care Provider Reason for Visit Reason Comments Kidney Follow-up Encounter Details Date Type Department Care Team Description 12/30/2019 Office Visit [facility] Transplant Arnaldo Varghese S/P living- donor kidney [facility] transplantation ([place] [address] [facility] [address]) [facility] [address] [facility] 2nd Floor [address] [place] [id number] Allergies Active Allergy Reactions Severity Noted Date Comments Ciprofloxacin Anxiety Low 04/17/2017 Hallucinations Metoclopramide Nausea And Vomiting 04/17/2017 Cimetidine 04/17/2017 Flu like symptoms documented as of this encounter (statuses as of 12/30/2019) Medications Medication Sig Dispensed Refills Start Date End Date Status predniSONE Take 1 mg by mouth 0 Active (DELTASONE) 1 MG daily tablet sirolimus (RAPAMUNE) Take 2 mg by mouth 0 Active 1 MG tablet daily MYCOPHENOLATE MOFETIL Take 500 mg by 0 Active PO mouth atenolol (TENORMIN) Take 25 mg by mouth 0 Active 25 MG tablet daily lisinopril Take 10 mg by mouth 0 Active (PRINIVIL,ZESTRIL) 10 daily MG tablet NIFEdipine (ADALAT Take 90 mg by mouth 0 Active CC) 90 MG 24 hr daily tablet sertraline (ZOLOFT) Take 50 mg by mouth 0 Active 50 MG tablet daily BUPROPION HCL ER, SR, Take 150 mg by 0 Active PO mouth TRAZODONE HCL PO Take 150 mg by 0 Active mouth CLOPIDOGREL BISULFATE Take 75 mg by mouth 0 Active PO daily aspirin 81 MG tablet Take 81 mg by mouth 0 Active daily Rivaroxaban (XARELTO) Take 20 mg by mouth 0 Active 20 MG TABS daily PANTOPRAZOLE SODIUM Take by mouth daily 0 Active PO Tadalafil 20 MG Oral Take 20 mg by mouth 0 Active Tablet (CIALIS) as needed for Erectile Dysfunction documented as of this encounter (statuses as of 12/30/2019) Active Problems Problem Noted Date Essential (primary) hypertension 03/21/2017 Major depressive disorder, single episode, mild 03/21/2017 History of kidney transplant 03/21/2017 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/10/2016 Overview: left arm documented as of this encounter (statuses as of 12/30/2019) Social History Tobacco Use Types Packs/Day Years [...] Sign Reading Time Taken Comments Blood Pressure 116/76 12/30/2019 11:39 AM EST Pulse 85 12/30/2019 11:39 AM EST Temperature 36.4 12/30/2019 11:39 AM EST C (97.6 F) Respiratory Rate - - Oxygen Saturation 96% 12/30/2019 11:39 AM EST Inhaled Oxygen Concentration - - Weight 80.7 kg (178 lb) 12/30/2019 11:39 AM EST Height 180.3 cm (5' 10.98") 12/30/2019 11:39 AM EST Body Mass Index 24.84 12/30/2019 11:39 AM EST documented in this encounter Progress Notes Arnaldo Varghese MD - 12/30/2019 10:30 AM EST RENAL TRANSPLANT RECIPIENT FOLLOW-UP Chris Beal is a 54 y.o. man who is in transplant clinic for post- transplant follow-up. Transplant History: Mr. 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 He received a second LURT transplant from his 0 HLA mismatched sister. He was treated with cyclosporin and MMF until 1999 whenhe developed tremors and memory loss. He was switched to sirolimus and MMF combination. He did well with a baseline creatinine of 0.8-1.0 mg/dl. He remains on sirolimus 4 mg QD with level of 5.6 and MMF 500 BID with prednisone 65 QD. On 11/22/2019, he was diagnosed with small cell lung cancer. On 12/14/2019, he began chemotherapy with carboplatinum and etoposide. He is expected to receive 6 cycles of this chemotherapy on a every 21 day cycle. Interim History: Today, the patient feels well. He reports having a dog bite on his upper right armthat his healing. He is tolerating medications and has been compliant with immunosuppressive therapy with no ill effects reported. Urine output remains good, no hematuria or dysuria. Good fluid intake. No abdominal or chest pain and no SOB. No fevers, chills, nausea, vomiting, or diarrhea. There are no additional complaints or concerns at this time. A complete ROS is otherwise negative. See also details per MOA note - reviewed. Allergies: Reglan [metoclopramide]; Tagamet [cimetidine]; and Ciprofloxacin MEDS: Current Outpatient Medications: aspirin 81 MG tablet, Take 81 mg by mouth daily, Disp: , Rfl: atenolol (TENORMIN) 25 MG tablet, Take 25 mg by mouth daily, Disp: , Rfl : BUPROPION HCL ER, SR, PO, Take 150 mg by mouth, Disp: , Rfl: CLOPIDOGREL BISULFATE PO, Take 75 mg by mouth daily, Disp: , Rfl: lisinopril (PRINIVIL,ZESTRIL) 10 MG tablet, Take 10 mg by mouth daily, Disp: , Rfl: MYCOPHENOLATE MOFETIL PO, Take 500 mg by mouth, Disp: , Rfl: NIFEdipine (ADALAT CC) 90 MG 24 hr tablet, Take 90 mg by mouth daily, Disp: , Rfl: PANTOPRAZOLE SODIUM PO, Take by mouth daily, Disp: , Rfl: predniSONE (DELTASONE) 1 MG tablet, Take 1 mg by mouth daily, Disp: , Rfl: Rivaroxaban (XARELTO) 20 MG TABS, Take 20 mg by mouth daily, Disp: , Rfl : sertraline (ZOLOFT) 50 MG tablet, Take 50 mg by mouth daily, Disp: , Rfl : sirolimus (RAPAMUNE) 1 MG tablet, Take 2 mg by mouth daily, Disp: , Rfl: Tadalafil 20 MG Oral Tablet (CIALIS), Take 20 mg by mouth as needed for Erectile Dysfunction, Disp: , Rfl: TRAZODONE HCL PO, Take 150 mg by mouth, Disp: , Rfl: PMH: Mr. 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 PSH: Mr. Beal has a past surgical history that includes Kidney transplant. FH:SH:Mr. Beal' family history includes Cancer in his mother; Kidney disease in an other family member. and reports that he has never smoked. He has never used smokeless tobacco. He reports currentalcohol use. Physical Exam Blood pressure 116/76, pulse 85, temperature 36.4 C (97.6 F), temperature source Oral, height 1.803 m (5' 10.98"), weight 80.7 kg (178 lb), SpO2 96 %.Body mass index is 24.84 kg/m. Constitutional: oriented to person, place, and time. Reasonably well-nourished. Head: Normocephalic and atraumatic. Pupils/sclera are normal. Neck supple, normal ROM. No JVD present. Cardiovascular: Normal heart sounds and intact distal pulses. no gallop or rub, no new murmur. Pulmonary/Chest: Good air exchange, no wheezes or crackles. No CVA tenderness. Abdomen: Soft non-tender. No HSM. Bowel sounds are normal. The transplant is non -tender, well healedincision and no bruits Musculoskeletal: No edema Neurological: alert. No focal findings, Gait normal. Skin: Skin warm, mucosa moist. Right upper arm a non-tender superficial injury that has healed over without surrounding cellulitis or warmth. Psychiatric:Normal mood, affect, and behavior. Judgment and thought content grossly normal. LABS: Results for orders placed or performed in visit on 12/21/19 Urine Culture Result Value Ref Range Specimen Description urine Special Request none Culture/Results no growth Report Status final CBC Result Value Ref Range White Blood Cell 7.30 Red Blood Cell 3.88 Hemoglobin 11.6 11.5 - 15.5 Hematocrit 33.0 (A) 41 - 53 Mean Cell Volume Mean Cell Hemoglobin Mean Cell Hgb Conc Red Cell Dist Width Platelet Count 379 150 - 400 Urine Random Total Protein Creatinine Ratio Result Value Ref Range Total Protein, Urine Urinary Creat 205.33 Urinary Prot/Creat Ratio 41 Urinalysis Without Microscopic Result Value Ref Range Color Yellow Clarity Clear Specific [place] 1.035 PH Urine 5.0 Total Protein UA 1+ Glucose, Urine Fasting negative Ketone Urine negative Bilirubin 0 Hemoglobin, Urine negative Leukocyte Esterase Negative Nitrite Negative WBC 1-5 RBC 1-5 Bacteria, UA None Seen Renal function panel Result Value Ref Range Albumin 4.0 Sodium 135 Potassium 4.3 Chloride 103 Bicarbonate 24 Glucose 94 Blood Urea Nitrogen 16 Creatinine 0.88 0.5 - 1.2 Calcium 9.2 Phosphorus 3.4 GFR 2008 CKD-EPI 108.8 GFR Non 2008 CDK-EPI 89.9 Sirolimus Level Result Value Ref Range Sirolimus 5.9 Assessment and Plans: 1. Kidney transplant/Immunosuppression: Allograft function is excellent on sirolimus 4 mg QD, mycophenolate mofetil 500 mg BID and prednisone 5 mg QD. The current issue is his beginning a course of chemotherapy that could affect his bone marrow and renal function. Suggest stopping his MMF as this would worsen his BM suppression while on etoposide. He may remain on sirolimus and prednisone. The sirolimus level would depend on his WBC but suggest a level of 4 -5 ng.ml. Given his 0 HLA MM donor kidney, his chance of rejection while on chemotherapy and sirolimus is low. His renal function will also need to be monitored for carboplatinum toxicity. The use of check point inhibitors is associated with a high rate of rejection and graft loss. These issues were discussed at length with the patient today. 2. Hypertension: Controlled on lisinopril 10 mg, nifedipine 90 mg and atenolol 25 daily. 3. Dog bite: Patient instructed to monitor lesion for signs of infection. At this time, does not need antibiotic therapy. 4. Diabetes: The patient will return to clinic in 6 months and earlier if required. Author: Arnaldo Varghese MD Transplant Nephrology [address] [address] documented in this encounter Plan of Treatment Date Type Specialty Care Team Description 06/29/2020 Follow-Up Transplant Arnaldo Varghese MD [address] [facility] [address] [place] [address] [phone] 09/29/2020 Office Visit Vascular Surgery Mirella Levine, EZIO [address] [facility] [address] [place] [address] [phone] Health Maintenance Due Date Last Done Comments Hepatitis C Screening (B. 1965 [id number]) MMR Vaccines (1 of 1 - Standard 1965 series) Varicella Vaccines (1 of 2 - 1965 2-dose childhood series) DTaP,Tdap,and Td Vaccines (1 - 1971 [...] this Patients (6 to 64 Years) topic documented as of this encounter Results Not on filedocumented in this encounter Visit Diagnoses Diagnosis S/P living-donor kidney transplantation - Primary Kidney replaced by transplant documented in this encounter
--- OUTSIDE RECORDS SUMMARY | 2020-01-08 01:04 | XMS REPORT | Summary of Care ---
:1965 Author Organization [facility] Address [address] [place] [address] Care Team Providers Name Role Phone Belkis Winslow MD Primary Care Provider Encounter Details Date Type Department Care Team Description 12/30/2019 Hospital Encounter [facility] Clinical Pathology at [place] [address] [place] [address] Allergies Active Allergy Reactions Severity Noted Date Comments Ciprofloxacin Anxiety Low 04/17/2017 Hallucinations Metoclopramide Nausea And Vomiting 04/17/2017 Cimetidine 04/17/2017 Flu like symptoms documented as of this encounter (statuses as of 12/31/2019) Medications Medication Sig Dispensed Refills Start Date [...] as of this encounter (statuses as of 12/31/2019) Active Problems Problem Noted Date Essential (primary) hypertension 03/21/2017 Major depressive disorder, single episode, mild 03/21/2017 History of kidney transplant 03/21/2017 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/10/2016 Overview: left arm documented as of this encounter (statuses as of 12/31/2019) Social History Tobacco Use Types Packs/Day Years [...] of this encounter Last Filed Vital Signs Not on filedocumented in this encounter Plan of Treatment Date Type Specialty Care Team Description 06/29/2020 Follow-Up Transplant Arnaldo Varghese MD [address] [facility] [address]nd [address] [place], [place] [id number] 09/29/2020 Office Visit Vascular Surgery Mirella Levine, EZIO [address] [place] [address] [phone] Health Maintenance Due Date Last Done Comments Hepatitis C Screening (B. 1965 [id number]) MMR Vaccines (1 of 1 - Standard [...]
--- OUTSIDE RECORDS SUMMARY | 2020-01-08 01:04 | XMS REPORT | Continuity of Care Document ---
:1965 External Reference #:[id number] Author Name Belkis Winslow MD (transmitted by agent of provider Luh Montes De Oca) Address [address] [facility], [address] [place] [id number] Care Team Providers Name Role Phone Hipolito Forrester MD - Nephrology Care Team Information Tobacco Stemmer [phone] Lashawn Brand MD - Vascular Surgery Care Team Information Tobacco Stemmer Eduard Go MD - Gastroenterology Care Team Information Tobacco Stemmer Daquan Nam MD - Dermatology Care Team Information Tobacco Stemmer Zachary Sahu MD - Hematology Care Team Information Tobacco Stemmer [phone] Belkis Winslow MD - Internal Medicine Care Team Information Tobacco Stemmer Problems Active Problems Provider Date Essential hypertension [...] Patient has never smoked Smoking Status Reviewed: 12/29/19 Patient has never smoked Allergies, Adverse Reactions, Alerts Active Allergies Reaction Severity Comments Date Reglan Nausea and Vomiting Mild 03/21/2017 Tagamet flu like symptoms Moderate 03/21/2017 Cipro anxiety/paic attacks Moderate hallucinations 03/21/2017 Gemfibrozil myalgias 03/23/2019 Reglan 10/12/2019 Cipro 10/12/2019 Tagamet 10/12/2019 Medications Active Medications SIG Qnty Indications Ordering Date Provider Cyclobenzaprine HCL 1 by mouth at 10tabs M54.5 Belkis Winslow MD 12/29/2019 10mg night Tablets Lisinopril 1 by mouth 90tabs I10 Rabia Harp MD 08/31/2019 10mg Tablets every day Trazodone HCL take 1 tablet 90tabs Rabia Harp MD 03/23/2019 150mg Tablets by mouth at bedtime Mycophenolate Mofetil 2 by mouth 360tabs Rabia Harp MD 03/23/2019 500mg twice a day Tablets Xarelto 1 by mouth 90tabs Belkis Winslow MD 03/23/2019 20mg Tablets every day Nifedipine ER take one tablet 90tabs Rabia Harp MD 03/23/2019 90mg Tablets by mouth every ER 24HR day Prednisone 1 by mouth 90tabs Rabia Harp MD 03/23/2019 5mg Tablets every day Sirolimus take 4 tablets 360tabs Rabia Harp MD 03/23/2019 1mg Tablets daily Pantoprazole Sodium 1 by mouth 90tabs Rabia Harp MD 03/23/2019 40mg every day Tablets DR Fluticasone Propionate 2 sprays each 48gm Rabia Harp MD 03/23/2019 nostril daily 50mcg/Act Suspension as needed Sertraline HCL 1 by mouth 90tabs Rabia Harp MD 03/23/2019 100mg every day Tablets Tadalafil take one tablet 10tabs Belkis Winslow MD 03/23/2019 20mg Tablets 1 hour before sex, not more than once every 3 days Bupropion Hydrochloride 1 by mouth 90tabs Rabia Harp MD 03/23/2019 ER (XL) every day 300mg Tablets ER 24HR Atenolol Take 1 Tablet 90tabs Belkis Winslow MD 03/23/2019 25mg Tablets Daily Calcium 600+D 1 by mouth a Unknown day [id number] Tablets Vitamin C 1 by mouth Unknown 500mg Capsules every day Fish Oil 1 by mouth Unknown 1200mg Capsules twice daily Ginkgo Biloba 1 by mouth Unknown 60mg Tablets twice a day B Complete 1 by mouth Unknown Tablets every day Preservision Areds Unknown Tablets Aspir-81 1 by mouth Unknown 81mg Tablets DR every day History Medications Azithromycin two tabs day 6tabs J20.9 Nesha Cartwright, 11/19/2019 - 250mg one, one daily N.P. 11/29/2019 Tablets till gone Benzonatate as needed 30caps J20.9 Nesha Cartwright, 11/19/2019 - 200mg N.P. 12/03/2019 Capsules Amoxicillin/Clavulana take 1 tab by 10tabs J01.90 Kennedi Subramanian 2018 - te Potassium mouth every 12 11/01/2019 875-125mg hours for 5 Tablets days Losartan Potassium 1 by mouth 30tabs I10 Belkis Winslow MD 07/13/2019 - 50mg every day 08/31/2019 Tablets Tetanus,Unspecified Unknown Injection Immunizations CPT Code Status Date Vaccine Reaction Lot # 65586 Given 08/31/2019 Influenza Virus Vaccine, No immediate reaction [id number] Quadrivalent ([id number]), Derived From Cell 51643 Given 08/30/2018 Influenza Virus Vaccine, Quadrivalent, Split, Preservative Free [id number] Given 01/12/2018 Tetanus And Diptheria (Td) [id number] For Adult Use Preservative Free 70865 Given 09/01/2017 Influenza Virus Vaccine, Quadrivalent, Split, Preservative Free Vital Signs Date Vital Result Comment 12/29/2019 10:19am Height 71 inches 5'11" Weight 170.00 lb Heart Rate 78 /min BP Systolic Sitting 115 mmHg BP Diastolic Sitting 74 mmHg Body Temperature 98.7 F O2 % BldC Oximetry 97 % BMI (Body Mass Index) 23.7 kg/m2 12/01/2019 2:08pm Height 71 inches 5'11" Weight 183.00 lb Heart Rate 85 /min BP Systolic Sitting 106 mmHg right arm reg cuff BP Diastolic Sitting 71 mmHg right arm reg cuff O2 % BldC Oximetry 98 % room air BMI (Body Mass Index) 25.5 kg/m2 Results Test Acquired Date Facility Test Result H/L Range Note Lipid Profile 12/27/2019 [facility] Triglycerides 134 mg/dL 1 (Trig/Chol/HDL) [address] [place] [address] [phone] Cholesterol 183 mg/dL 2 HDL Cholesterol 42.4 mg/dL 3 LDL Cholesterol 114 mg/dL 4 CBC Auto 12/14/2019 [facility] White Blood 8.4 10^3/uL Normal 3.5-10.[address] [place] [address] [phone] Red Blood Count 4.24 10^6/uL Normal 4.18-5.48 Hemoglobin 12.4 g/dL Low 14.0-18.0 Hematocrit 36 % Low 42-52 Mean Corpuscular Volume 86 fL Normal 80-94 Mean Corpuscular Hemoglobin 29 pg Normal 27-31 Mean Corpuscular HGB Conc 34 g/dL Normal 31-36 Red Cell Distribution Width 15 % Normal 10-15 Platelet Count 451 10^3/uL High 150-450 Mean Platelet Volume 7.3 fL Low 7.4-10.4 Abs Neutrophils 6.3 10^3/uL Normal 1.5-7.7 Abs Lymphocytes 1.1 10^3/uL Normal 1.0-4.8 Abs Monocytes 0.5 10^3/uL Normal 0-0.8 Abs Eosinophils 0.4 10^3/uL Normal 0-0.6 Abs Basophils 0.1 10^3/uL Normal 0-0.2 Abs Nucleated RBC 0.0 10^3/uL Granulocyte % 75.6 % Lymphocyte % 13.3 % Monocyte % 5.8 % Eosinophil % 4.3 % Basophil % 1.0 % Nucleated Red Blood Cells % 0.0 Comp Metabolic 12/14/2019 [facility] Sodium 137 mmol/L Normal 135-[address] [place] [address] [phone] Potassium 3.7 mmol/L Normal 3.5-5.0 Chloride 106 mmol/L Normal 101-111 Co2 Carbon Dioxide 23 mmol/L Normal 22-32 Anion Gap 8 mmol/L Normal 2-11 Glucose 86 mg/dL Normal 70-100 Blood Urea Nitrogen 13 mg/dL Normal 6-24 Creatinine 1.03 mg/dL Normal 0.67-1.17 BUN/Creatinine Ratio 12.6 Normal 8-20 Calcium 9.2 mg/dL Normal 8.6-10.3 Total Protein 6.9 g/dL Normal 6.4-8.9 Albumin 3.7 g/dL Normal 3.2-5.2 Globulin 3.2 g/dL Normal 2-4 Albumin/Globulin Ratio 1.2 Normal 1-3 Total Bilirubin 0.40 mg/dL Normal 0.2-1.0 Alkaline Phosphatase 90 U/L Normal 34-104 Alt 43 U/L Normal 7-52 Ast 52 U/L High 13-39 Egfr Non- 75.0 >60 Egfr 90.7 >60 5 Laboratory 12/14/2019 [facility] Magnesium 1.9 mg/dL Normal 1.9-2.[address] [place] [address] [phone] Inr/Protime 12/04/2019 [facility] Inr 1.15 High 0.82-1.[address] [place] [address] [phone] Laboratory 12/04/2019 [facility] Partial 39.1 High 26.0-38.[address] [address] PTT [phone] CBC Auto Diff 12/04/2019 [facility] White Blood 10.2 Normal 3.5-10.[address] Count 10^3/[place] [address] [phone] Red Blood Count 4.12 10^6/uL Low 4.18-5.48 Hemoglobin 12.1 g/dL Low 14.0-18.0 Hematocrit 35 % Low 42-52 Mean Corpuscular Volume 85 fL Normal 80-94 Mean Corpuscular Hemoglobin 30 pg Normal 27-31 Mean Corpuscular HGB Conc 35 g/dL Normal 31-36 Red Cell Distribution Width 14 % Normal 10-15 Platelet Count 607 10^3/uL High 150-450 Mean Platelet Volume 7.2 fL Low 7.4-10.4 Abs Neutrophils 8.4 10^3/uL High 1.5-7.7 Abs Lymphocytes 1.0 10^3/uL Normal 1.0-4.8 Abs Monocytes 0.4 10^3/uL Normal 0-0.8 Abs Eosinophils 0.2 10^3/uL Normal 0-0.6 Abs Basophils 0.1 10^3/uL Normal 0-0.2 Abs Nucleated RBC 0.0 10^3/uL Granulocyte % 82.7 % Lymphocyte % 10.3 % Monocyte % 4.0 % Eosinophil % 2.0 % Basophil % 1.0 % Nucleated Red Blood Cells % 0.0 Comp Metabolic 12/04/2019 [facility] Sodium 136 mmol/L Normal 135-145 Panel [address] [place] [address] [phone] Potassium 3.8 mmol/L Normal 3.5-5.0 Chloride 106 mmol/L Normal 101-111 Co2 Carbon Dioxide 20 mmol/L Low 22-32 Anion Gap 10 mmol/L Normal 2-11 Glucose 86 mg/dL Normal 70-100 Blood Urea Nitrogen 11 mg/dL Normal 6-24 Creatinine 1.08 mg/dL Normal 0.67-1.17 BUN/Creatinine Ratio 10.2 Normal 8-20 Calcium 9.0 mg/dL Normal 8.6-10.3 Total Protein 6.7 g/dL Normal 6.4-8.9 Albumin 3.4 g/dL Normal 3.2-5.2 Globulin 3.3 g/dL Normal 2-4 Albumin/Globulin Ratio 1.0 Normal 1-3 Total Bilirubin 0.30 mg/dL Normal 0.2-1.0 Alkaline Phosphatase 117 U/L High 34-104 Alt 29 U/L Normal 7-52 Ast 32 U/L Normal 13-39 Egfr Non- 71.0 >60 Egfr 85.9 >60 7 Lipid Profile 12/04/2019 [facility] Triglycerides 184 mg/dL 8 (Trig/Chol/HDL) [address] [place] [address] [phone] Cholesterol 187 mg/dL 9 HDL Cholesterol 30.3 mg/dL 10 LDL Cholesterol 120 mg/dL 11 Laboratory test 12/04/2019 [facility] Troponin-I 0.01 <0.03 [address] (TnI) ng/[place] [address] [phone] Laboratory test 11/22/2019 [facility] C Reactive 167.43 High < 8.[address] Protein mg/[place] [address] [phone] Comp Metabolic 11/22/2019 [facility] Sodium 133 Low 135-[address] mmol/[place] [address] [phone] Potassium 4.2 mmol/L Normal 3.5-5.0 Chloride 102 [...] Egfr Non- 77.6 >60 Egfr 93.9 >60 13 Laboratory 11/22/2019 [facility] Troponin-I 0.04 Critical < 0.03 14 test finding [address] (TnI) ng/[place] [address] [phone] CBC Auto Diff 11/22/2019 [facility] White Blood 12.3 High 3.5- 10.[address] Count 10^3/[place] [address] [phone] Red Blood Count 4.00 10^6/uL Low 4.18-5.48 [...] Nucleated Red Blood Cells % 0.0 Laboratory test 11/22/2019 [facility] Lactic Acid 0.8 mmol/L Normal 0.5-2.0 [address] [place] [address] [phone] B-Type Natriuretic Peptide BNP 39 pg/mL <=100 Ebv Ava Hassan 11/22/2019 [facility] Ebv Capsid Positive Negative Comprehensive [address] [place] [address] [phone] Ebv Capsid Ag IgM Ab Negative Negative Ava-Hassan Nuclear Antigen Positive Negative Ava-Hassan Virus Interp See Comment 16 CMV Igg/Igm 11/22/2019 [facility] Cytomegalovirus IgG Negative Negative [address] [place] [address] [phone] Cytomegalovirus IgM Antibody Negative Negative Laboratory 11/22/2019 [facility] Troponin-I 0.04 Critical < 0.03 18 test finding [address] (TnI) ng/[place] [address] [phone] GGTP 355 U/L High 9-64.0 LDH 391 U/L High 140-271 Uric Acid 5.2 mg/dL Normal 4.4-7.6 Blood Culture SEE RESULT BELOW 19 Laboratory test 11/22/2019 [facility] Blood SEE RESULT [address] [place] [address] [phone] Laboratory test 11/22/2019 [facility] Partial 36.8 seconds Normal 26.0- finding [address] Thrombo Time 38.0 [place] [address] PTT [phone] Inr/Protime 11/22/2019 [facility] Inr 1.26 High 0.82- [address] 1.09 [place] [address] [phone] 1 Desirable: <150 Borderline High: 150-199 High: 200-499 Very High: >500 2 Desirable: <200 Borderline High: 200-239 High: >239 3 Low: <40 Desirable: 40-60 High: >60 4 Desirable: <100 Near Optimal: 100-129 Borderline High: 130-159 High: 160-189 Very High: >189 5 Because ethnic data is not always readily [...] 15-29 5 Kidney failure <15 (or dialysis) 6 Standard intensity warfarin therapeutic range: 2.0-3.0 High intensity warfarin therapeutic range: 2.5-3.5 7 Because ethnic data is not always readily [...] 15-29 5 Kidney failure <15 (or dialysis) 8 Desirable: <150 Borderline High: 150-199 High: 200-499 Very High: >500 9 Desirable: <200 Borderline High: 200-239 High: >239 10 Low: <40 Desirable: 40-60 High: >60 11 Desirable: <100 Near Optimal: 100-129 Borderline High: 130-159 High: 160-189 Very High: >189 12 Troponin-I testing on Plasma Separator Tubes (PST) has a known false positive rate of 0.20-0.40%. All positive troponins reflex immediately to secondary confirmatory testing. Using the [employer] ([employer]) DxI 800 Access Immunoassay systems, the 99th percentile upper reference limit was demonstrated to be < 0.03 ng/mL. 13 Because ethnic data is not always readily [...] 15-29 5 Kidney failure <15 (or dialysis) 14 Result TnIDx:0.04 Called to [id number] at: 16:23:20 by:[id number] Read back by: [id number] Troponin-I testing on Plasma Separator Tubes (PST) has a known false positive rate of 0.20-0.40%. All positive troponins reflex immediately to secondary confirmatory testing. Using the [employer] DxI 800 Access Immunoassay systems, the 99th percentile upper reference limit was demonstrated to be < 0.03 ng/mL. 15 [facility] Severe Sepsis and Septic Shock Management Bundle Measure requires all lactic acids initially measuring >2.0 mmol/L be repeated. 16 RESULT: Results suggest past infection. ADDITIONAL INFORMATION [...] primary infection with EBV. Test Performed by: [place] [address] Telephoner: Aneudy Aguirre M.D. Ph.D.; CLIA# [id number] 17 Test Performed by: [place] [address] Telephoner: Aneudy Aguirre M.D. Ph.D.; CLIA# [id number] 18 Result TnIDx:0.04 Called to [id number] at: 21:40:16 by:[email or web address] Read back by: [id number] Troponin-I testing on Plasma Separator Tubes (PST) has a known false positive rate of 0.20-0.40%. All positive troponins reflex immediately to secondary confirmatory testing. Using the [employer] ([employer]) DxI 800 Access Immunoassay systems, the 99th percentile upper reference limit was demonstrated to be < 0.03 ng/mL. 19 SEE RESULT BELOW Name: HIPOLITO BEAL : [address]: Mavis Stock MD Acct: [id number] Unit: [id number] AGE: 54 Location: ED Re11/22/19 SEX: M Status: DEP ER SPEC: [id number] UMER: 01/ SUBM DR: Rosa Salas MD REQ: [id number] RECD: 11/22/19 STATUS: COMP [facility] DR: Mavis Winslow MD _ SOURCE: BLOOD,VENO SPDESC: ORDERED: Blood Cult Procedure Result Reported Site Aerobic Culture Bottle Final 11/27/19- 2115 ML No Growth Day 5 Anaerobic Culture Bottle Final 11/27/19- 2115 ML No Growth Day 5 * ML - Main Lab . END OF REPORT DEPARTMENT OF PATHOLOGY, [address] [place] [address] Mani Dooley M.D. Director [facility] # [id number] 20 SEE RESULT BELOW Name: HIPOLITO BEAL : [address]: Mavis Stock MD Acct: [id number] Unit: [id number] AGE: 54 Location: ED Re11/22/19 SEX: M Status: DEP ER SPEC: [id number] UMER: 11/22/[address] [facility] [address]: Jayla Taveras MD REQ: [id number] RECD: 11/22/19 STATUS: ALEXA FREY DR: Mavis Winslow MD _ SOURCE: BLOOD,VENO SPDES: ORDERED: Blood Cult Procedure Result Reported Site Aerobic Culture Bottle Final 11/27/19- 2153 ML No Growth Day 5 Anaerobic Culture Bottle Final 11/27/19- 2151 ML No Growth Day 5 * ML - Main Lab . END OF REPORT DEPARTMENT OF PATHOLOGY, [address] [place] [address] Mani Dooley M.D. 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 unspecified Ccmob Office Visit 10/22/2019 3:00p [facility] Internal Kennedi J01.90 Acute sinusitis, Medicine - MD Moris unspecified Ccmob Office Visit 08/31/2019 8:40a [facility] Internal Belkis Winslow MD I10 Essential Medicine - (primary) Ccmob hypertension Z23 Encounter for immunization Office Visit 07/13/2019 10:00a [facility] Internal Belkis Winslow, I10 Essential ( primary) Medicine - Ccmob hypertension Assessments Date Code Description Provider 12/29/2019 C34.90 Malignant neoplasm of unspecified part of Belkis Winslow MD unspecified bronchus or lung 12/29/2019 I10 Essential (primary) hypertension Belkis Winslow MD 12/29/2019 M54.5 Low back pain Belkis Winslow MD 12/14/2019 Z51.11 Encounter for antineoplastic chemotherapy Malik Gonsales M.D. 12/14/2019 C34.90 Malignant neoplasm of unspecified part of Malik Gonsales M.D. unspecified bronchus or lung 12/01/2019 C34.01 Malignant neoplasm of right main bronchus Liz Olivares MD 12/01/2019 C34.02 Malignant neoplasm of left main bronchus Liz Olivares MD 12/01/2019 C79.89 Secondary malignant neoplasm of other Liz Olivares MD specified sites 12/01/2019 N18.1 Chronic kidney disease, stage 1 Liz Olivares MD 12/01/2019 Z94.0 Kidney transplant status Liz Olivares MD 12/01/2019 C34.00 Malignant neoplasm of unspecified main Liz Olivares MD bronchus 11/19/2019 J20.9 Acute bronchitis, unspecified Nesha Cartwright, N.P. 10/22/2019 J01.90 Acute sinusitis, unspecified Kennedi Subramanian MD 08/31/2019 I10 Essential (primary) hypertension Belkis Winslow MD 08/31/2019 Z23 Encounter for immunization Belkis Winslow MD 07/13/2019 I10 Essential (primary) hypertension Belkis Winslow MD Plan of Treatment Future Appointment(s):01/19/2020 10:00 am - Liz Olivares MD at [facility] Rvojtzlzzq96/07/2020 11:20 am - Belkis Winslow MD at [facility] Internal Medicine - Ccmob12/29/2019 - Belkis Winslow MDC34.90 Malignant neoplasm of unspecified part of unspecified bronchus or lungReferral:Robinson Cerrato LCSW, Clinical/Social [id number] Essential (primary) hypertensionComments:Your blood pressure is fine. Continue Atenolol/nifedipine/ lisinoprilOk to stop lisinopril if kqtzqnV92.5 Low back painNew Medication:Cyclobenzaprine HCL 10 mg - 1 by mouth at night Functional Status Description No Information Available Mental Status Description No Information Available Referrals Refer to Reason for Referral Status Appt Date Robinson Cerrato LCSW Pt has metastatic CA lung. Needs to start to see Created 00 therapist while undergoing chemo [address], [place] [address] [phone]
--- OUTSIDE RECORDS SUMMARY | 2020-01-08 01:04 | XMS REPORT | Continuity of Care Document ---
:1965 External Reference #:[id number] Author Name Belkis Winslow MD Address [address], [place] [address] Care Team Providers Name Role Phone Hipolito Forrester MD - Nephrology Care Team Information Catalyst Supervisor [phone] Lashawn Brand MD - Vascular Surgery Care Team Information Catalyst Supervisor Eduard Go MD - Gastroenterology Care Team Information Catalyst Supervisor Daquan Nam MD - Dermatology Care Team Information Catalyst Supervisor Zachary Sahu MD - Hematology Care Team Information Catalyst Supervisor [phone] Belkis Winslow MD - Internal Medicine Care Team Information Catalyst Supervisor Problems Active Problems Provider Date Essential hypertension [...] Medications SIG Qnty Indications Ordering Date Provider Lisinopril 1 by mouth every 90tabs I10 [...] Daily Calcium 600+D 1 by mouth a day Unknown 458-180ty-Nsen Tablets Vitamin C 1 by mouth every Unknown 500mg Capsules day Fish Oil 1 by mouth twice Unknown 1200mg Capsules daily Ginkgo Biloba 1 by mouth twice Unknown 60mg a day Tablets B Complete 1 by mouth every Unknown Tablets day Preservision Areds Unknown Tablets Aspir-81 1 by mouth every Unknown 81mg Tablets DR day History Medications Azithromycin two tabs day 6tabs J20.9 Nesha Gabbie, 11/19/2019 - 250mg one, one daily N.P. 11/29/2019 Tablets till gone Benzonatate as needed 30caps J20.9 Nesha Gabbie, 11/19/2019 - 200mg N.P. 12/03/2019 Capsules Amoxicillin/Clavulana take 1 tab by 10tabs J01.90 Kennedi Subramanian 2018 - te Potassium mouth every 12 11/01/2019 875-125mg hours for 5 Tablets days Losartan Potassium 1 by mouth 30tabs I10 Belkis Winslow MD 07/13/2019 - 50mg every day 08/31/2019 Tablets Tetanus,Unspecified Unknown Injection Immunizations CPT Code Status Date Vaccine Reaction Lot # [id number] Given 08/31/2019 Influenza Virus Vaccine, No immediate reaction [id number] Quadrivalent ([id number]), Derived From Cell 61035 Given 08/30/2018 Influenza Virus Vaccine, Quadrivalent, Split, Preservative Free 58316 Given 01/12/2018 Tetanus And Diptheria (Td) [id number] For Adult Use Preservative Free 86747 Given 09/01/2017 Influenza Virus Vaccine, Quadrivalent, Split, [...] Mass Index) 25.6 kg/m2 Results Test Acquired Date Facility Test Result H/L Range Note Inr/Protime 12/04/2019 [facility] Inr 1.15 High 0.82-1.[address] [place] [address] [phone] Laboratory test 12/04/2019 [facility] Partial 39.1 High 26.0- 38.[address] [place] [address] PTT [phone] CBC Auto Diff 12/04/2019 [facility] White Blood 10.2 Normal 3.5-10.[address] Count 10^3/[place] [address] [phone] Red Blood Count 4.12 10^6/uL Low 4.18-5.48 [...] Blood Cells % 0.0 Comp Metabolic 12/04/2019 [facility] Sodium 136 mmol/L Normal 135-[address] [place] [address] [phone] Potassium 3.8 mmol/L Normal 3.5-5.0 Chloride 106 [...] Egfr Non- 71.0 >60 Egfr 85.9 >60 2 Lipid Profile 12/04/2019 [facility] Triglycerides 184 mg/dL 3 (Trig/Chol/HDL) [facility] [place] [address] [phone] Cholesterol 187 mg/dL 4 HDL Cholesterol 30.3 mg/dL 5 LDL Cholesterol 120 mg/dL 6 Laboratory test 12/04/2019 [facility] Troponin-I 0.01 ng/mL < 0.03 7 finding [facility] ([place] [place]) (TnI) [place] [address] [phone] Laboratory test 11/22/2019 [facility] C Reactive 167.43 High < 8.01 [address] [facility] ([place] [place]) Protein mg/L [place], [place] [address] [phone] Comp Metabolic 11/22/2019 [facility] Sodium 133 mmol/L Low 135 -145 [place] [address] [phone] Potassium 4.2 mmol/L Normal 3.5-5.0 Chloride 102 [...] Egfr Non- 77.6 >60 Egfr 93.9 >60 8 Laboratory 11/22/2019 [facility] Troponin-I 0.04 Critical < 0.03 9 test finding [address] (TnI) ng/mL high [place], [place] [address] [phone] CBC Auto Diff 11/22/2019 [facility] White Blood 12.3 High 3.5- 10.[address] Count 10^3/uL [place], [place] [address] [phone] Red Blood Count 4.00 10^6/uL Low 4.18-5.48 [...] Blood Cells % 0.0 Laboratory test 11/22/2019 [facility] Lactic Acid 0.8 mmol/L Normal 0.5-2.0 [address] [place] [address] [phone] B-Type Natriuretic Peptide BNP 39 pg/mL <=100 Ebv Ava Hassan 11/22/2019 [facility] Ebv Capsid Positive Negative Comprehensive [address] [place] [address] [phone] Ebv Capsid Ag IgM Ab Negative Negative Ava-Hassan Nuclear Antigen Positive Negative Ava-Hassan Virus Interp See Comment 11 CMV Igg/Igm 11/22/2019 [facility] Cytomegalovirus IgG Negative Negative [address] [place] [address] [phone] Cytomegalovirus IgM Antibody Negative Negative Laboratory 11/22/2019 [facility] Troponin-I 0.04 Critical < 0.03 13 test finding [address] (TnI) ng/[place] [address] [phone] GGTP 355 U/L High 9-64.0 LDH 391 U/L High 140-271 Uric Acid 5.2 mg/dL Normal 4.4-7.6 Blood Culture SEE RESULT BELOW 14 Laboratory test 11/22/2019 [facility] Blood SEE RESULT [address] [place] [address] [phone] Laboratory test 11/22/2019 [facility] Partial 36.8 seconds Normal 26.0- finding [address] Thrombo Time 38.0 [place] [address] PTT [phone] Inr/Protime 11/22/2019 [facility] Inr 1.26 High 0.82- [address] 1.09 [place] [address] [phone] 1 Standard intensity warfarin therapeutic range: 2.0-3.0 High intensity warfarin therapeutic range: 2.5-3.5 2 Because ethnic data is not always readily [...] 15-29 5 Kidney failure <15 (or dialysis) 3 Desirable: <150 Borderline High: 150-199 High: 200-499 Very High: >500 4 Desirable: <200 Borderline High: 200-239 High: >239 5 Low: <40 Desirable: 40-60 High: >60 6 Desirable: <100 Near Optimal: 100-129 Borderline High: 130-159 High: 160-189 Very High: >189 7 Troponin-I testing on Plasma Separator Tubes (PST) has a known false positive rate of 0.20-0.40%. All positive troponins reflex immediately to secondary confirmatory testing. Using the [employer] DxI 800 Access Immunoassay systems, the 99th percentile upper reference limit was demonstrated to be < 0.03 ng/mL. 8 Because ethnic data is not always readily [...] 15-29 5 Kidney failure <15 (or dialysis) 9 Result TnIDx:0.04 Called to [id number] at: 16:23:20 by:[id number] Read back by: [id number] Troponin-I testing on Plasma Separator Tubes (PST) has a known false positive rate of 0.20-0.40%. All positive troponins reflex immediately to secondary confirmatory testing. Using the [employer] DxI 800 Access Immunoassay systems, the 99th percentile upper reference limit was demonstrated to be < 0.03 ng/mL. 10 [facility] Severe Sepsis and Septic Shock Management Bundle Measure requires all lactic acids initially measuring >2.0 mmol/L be repeated. 11 RESULT: Results suggest past infection. ADDITIONAL INFORMATION [...] primary infection with EBV. Test Performed by: [place] [address] Internet Sales Director: Aneudy Aguirre M.D. Ph.D.; CLIA# [id number] 12 Test Performed by: [place] [address] Internet Sales Director: Aneudy Aguirre M.D. Ph.D.; CLIA# [id number] 13 Result TnIDx:0.04 Called to [id number] at: 21:40:16 by:[id number] Read back by: [id number] Troponin-I testing on Plasma Separator Tubes (PST) has a known false positive rate of 0.20-0.40%. All positive troponins reflex immediately to secondary confirmatory testing. Using the [employer] DxI 800 Access Immunoassay systems, the 99th percentile upper reference limit was demonstrated to be < 0.03 ng/mL. 14 SEE RESULT BELOW Name: HIPOLITO BEAL : [address]: Mavis Stock MD Acct: [id number] Unit: [id number] AGE: 54 Location: ED Re11/22/19 SEX: M Status: DEP ER SPEC: [id number] UMER: 11/22/[address] [facility] [address]: Rosa Salas MD REQ: [id number] RECD: 11/22/19 STATUS: ALEXA FREY DR: Mavis Winslow MD _ SOURCE: BLOOD,VENO [facility]: ORDERED: Blood Cult Procedure Result Reported Site Aerobic Culture Bottle Final 11/27/192115 ML No Growth Day 5 Anaerobic Culture Bottle Final 11/27/192115 ML No Growth Day 5 * ML - Main Lab . END OF REPORT DEPARTMENT OF PATHOLOGY, [address] [place] [address] Mani Dooley M.D. Director [facility] # [id number] 15 SEE RESULT BELOW Name: HIPOLITO BEAL : [address]: Mavis Stock MD Acct: [id number] Unit: [id number] AGE: 54 Location: ED Re11/22/19 SEX: M Status: DEP ER SPEC: [id number] UMER: 11/22/[address] [facility] [address]: Jayla Taveras MD REQ: [id number] RECD: 11/22/19 STATUS: ALEXA FREY DR: Mavis Winslow MD _ SOURCE: BLOOD,VENO SPDESC: ORDERED: Blood Cult Procedure Result Reported Site Aerobic Culture Bottle Final 11/27/19- 2153 ML No Growth Day 5 Anaerobic Culture Bottle Final 11/27/19- 2151 ML No Growth Day 5 * ML - Main Lab . END OF REPORT DEPARTMENT OF PATHOLOGY, [address] [place] [address] Mani Dooley M.D. Director 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 unspecified Ccmob Office Visit 10/22/2019 3:00p [facility] Internal Kennedi J01.90 Acute sinusitis, Medicine - MD Moris unspecified Ccmob Office Visit 08/31/2019 8:40a [facility] Internal Belkis Winslow MD I10 [facility] En[facility] for immunization Office Visit 07/13/2019 10:00a [facility] Internal Belkis Winslow, I10 Essential ( [facility] hypertension Office Visit 06/15/2019 10:20a [facility] Internal Belkis Winslow, F33.0 Major depressive [facility] disorder, recurrent, mild E78.5 Hyperlipidemia, unspecified I10 Essential (primary) hypertension Z94.0 Kidney transplant status K21.9 Gastro-esophageal reflux disease without esophagitis I82.622 Acute embolism and thrombosis of deep veins of l up extrem N52.1 Erectile dysfunction due to diseases classified elsewhere Assessments Date Code Description Provider 12/01/2019 C34.01 Malignant neoplasm of right main [...] Winslow MD 06/15/2019 Z94.0 Kidney transplant status Blekis Winslow MD 06/15/2019 K21.9 Gastro-esophageal reflux disease without Belkis Winslow MD esophagitis 06/15/2019 I82.622 Acute embolism and thrombosis of deep veins Belkis Winslow MD of left upper extremity 06/15/2019 N52.1 Erectile dysfunction due to diseases Belkis Winslow MD classified elsewhere Plan of Treatment Future Appointment(s):01/03/2020 10:00 am - Liz Olivares MD at [facility] Oygualwrcd85/25/2020 9:40 am - Belkis Winslow [facility] at [facility] am - Belkis Winslow [facility] at [facility] - Liz Olivares, MDC34.01 Malignant neoplasm of right main oilhjmzeI10.02 Malignant neoplasm of left main rpanptcsK55.89 Secondary malignant neoplasm of other specified pyseeV43.1 Chronic kidney disease, stage 1Z94.0 Kidney transplant statusFollow up:1 month f/u with labsC34.00 Malignant neoplasm of unspecified main bronchus Functional Status Description No Information Available Mental Status Description No Information Available Referrals Description No Information Available
[2020-01-08 01:28] LABS: Albumin 4.4 g/dL (3.2-5.2); Albumin/Globulin Ratio 1.6 (1-3); BUN/Creatinine Ratio 12.1 (8-20); Calcium 10.1 mg/dL (8.6-10.3); EGFR African American 86.8 (>60); EGFR Non-African American 71.8 (>60); Globulin 2.7 g/dL (2-4); Potassium 4.3 mmol/L (3.5-5.0); Total Bilirubin 0.3 mg/dL (0.2-1.0); Total Protein 7.1 g/dL (6.4-8.9)
[2020-01-08] MEDS ORDERED: oxyCODONE/Acetamin 5/325 MG* TAB PO ONE (03:20)
[2020-01-08 04:02] VITALS: BP 0/0
== END 2020-01-08 03:45 | disposition home or self-care (01) ==
LOC: ED 23:45
DX: M54.16 Radiculopathy, lumbar region (principal); M54.6 Pain in thoracic spine; C79.51 Secondary malignant neoplasm of bone; C34.90 Malignant neoplasm of unspecified part of unspecified bronchus or lung; C78.7 Secondary malignant neoplasm of liver and intrahepatic bile duct; I10 Essential (primary) hypertension; Z79.899 Other long term (current) drug therapy; Z94.0 Kidney transplant status; Z88.1 Allergy status to other antibiotic agents; Z88.8 Allergy status to other drugs, medicaments and biological substances; Z91.048 Other nonmedicinal substance allergy status; Z87.891 Personal history of nicotine dependence
CPT/HCPCS: 36415; 72129; 72132; 80053; 85025; 99283; A9270-GY

== ENCOUNTER 2020-04-10 11:41 | Inpatient (IN) ==
[2020-04-10 12:25] LABS: Hematocrit 29 % (42-52); Hemoglobin 9.8 g/dL (14.0-18.0); Mean Corpuscular HGB Conc 34 g/dL (31-36); Mean Corpuscular Hemoglobin 32 pg (27-31); Mean Corpuscular Volume 93 fL (80-94); Mean Platelet Volume 7.9 fL (7.4-10.4); Platelet Count 141 10^3/uL (150-450); Red Blood Count 3.09 10^6 /uL (4.18-5.48); Red Cell Distribution Width 18 % (10-15); White Blood Count 7.1 10^3/uL (3.5-10.8)
[2020-04-10 12:28] LABS: ABS Eosinophils 0.2 10^3/ul (0-0.6); ABS Lymphocytes 0.6 10^3/ul (1.0-4.8); ABS Monocytes 0.4 10^3/ul (0-0.8); Eosinophil % 2.2 %; Lymphocyte % 8.9 %; Nucleated Red Blood Cells % 0.4
[2020-04-10 12:41] LABS: Albumin 3.5 g/dL (3.2-5.2); Albumin/Globulin Ratio 1.1 (1-3); BUN/Creatinine Ratio 13.9 (8-20); Calcium 8.9 mg/dL (8.6-10.3); EGFR African American 92.8 (>60); EGFR Non-African American 76.7 (>60); Globulin 3.3 g/dL (2-4); Potassium 3.1 mmol/L (3.5-5.0); Total Bilirubin 0.3 mg/dL (0.2-1.0); Total Protein 6.8 g/dL (6.4-8.9)
[2020-04-10] MEDS ORDERED: Piperacillin/Tazobac ADVAN(*) 3.375 GM in NS 0.9% 100 ml BAG 100 ML IVPB ONE (14:11)
[2020-04-10] MEDS ORDERED: Iodixanol (CONTRAST) 320 MG/ML 100 ML SDV IV ONE ×2 (14:40→22:07)
[2020-04-10] MEDS ORDERED: Zosyn per Pharmacy NOTE FOLLOW UP SCH (15:00)
[2020-04-10 15:08] LABS: Urine Appearance Cloudy; Urine Bilirubin Negative (Negative); Urine Blood 3+ (Negative); Urine Color Yellow; Urine Glucose Negative (Negative); Urine Ketones Negative (Negative); Urine Nitrite Negative (Negative); Urine Protein Negative (Negative); Urine Specific Gravity 1.016 (1.010-1.030); Urine Urobilinogen Negative (Negative)
[2020-04-10 15:11] LABS: Urine Bacteria Absent (Absent); Urine Red Blood Cell 3+(>10/hpf) (Absent); Urine White Blood Cell Trace(0-5/hpf) (Absent)
[2020-04-10] MEDS: NS 0.9% w/ 40 Meq KCL 1000 ML 1,000 ML IV SCH (15:48)
[2020-04-10] MEDS: SIROLIMUS 1 MG PO SCH (23:28)
[2020-04-10] MEDS: Rivaroxaban 20 mg TAB (*) PO SCH (23:28)
[2020-04-10] MEDS: ZOSYN 3.375 GM Q8H per EXTENDED INFUSION IV SCH (23:32)
[2020-04-11] MEDS: NS 0.9% w/ 40 Meq KCL 1000 ML 1,000 ML IV SCH ×2 (06:21→18:58)
[2020-04-11 07:17] LABS: Hematocrit 27 % (42-52); Hemoglobin 9.5 g/dL (14.0-18.0); Mean Corpuscular HGB Conc 35 g/dL (31-36); Mean Corpuscular Hemoglobin 33 pg (27-31); Mean Corpuscular Volume 92 fL (80-94); Mean Platelet Volume 7.7 fL (7.4-10.4); Platelet Count 143 10^3/uL (150-450); Red Cell Distribution Width 18 % (10-15); White Blood Count 6.2 10^3/uL (3.5-10.8)
[2020-04-11 07:28] LABS: Albumin 3.1 g/dL (3.2-5.2); BUN/Creatinine Ratio 10.9 (8-20); Calcium 8.4 mg/dL (8.6-10.3); EGFR African American 92.8 (>60); EGFR Non-African American 76.7 (>60); Globulin 3.1 g/dL (2-4); Potassium 3.7 mmol/L (3.5-5.0); Total Bilirubin 0.3 mg/dL (0.2-1.0); Total Protein 6.2 g/dL (6.4-8.9)
[2020-04-11 08:23] LABS: ABS Eosinophils 0.1 10^3/ul (0-0.6); ABS Lymphocytes 0.7 10^3/ul (1.0-4.8); ABS Monocytes 0.5 10^3/ul (0-0.8); Eosinophil % 2.3 %; Lymphocyte % 10.8 %; Nucleated Red Blood Cells % 0.2
[2020-04-11 08:26] LABS: Polychromasia 1+
[2020-04-11] MEDS: ZOSYN 3.375 GM Q8H per EXTENDED INFUSION IV SCH ×3 (09:15→23:36)
[2020-04-11] MEDS: Rivaroxaban 20 mg TAB (*) PO SCH (15:19)
[2020-04-11] MEDS: SIROLIMUS 1 MG PO SCH (15:23)
[2020-04-12] MEDS: NS 0.9% w/ 40 Meq KCL 1000 ML 1,000 ML IV SCH (04:48)
[2020-04-12 07:26] LABS: Hematocrit 27 % (42-52); Hemoglobin 9.4 g/dL (14.0-18.0); Mean Corpuscular HGB Conc 35 g/dL (31-36); Mean Corpuscular Hemoglobin 33 pg (27-31); Mean Corpuscular Volume 93 fL (80-94); Mean Platelet Volume 7.8 fL (7.4-10.4); Platelet Count 186 10^3/uL (150-450); Red Blood Count 2.89 10^6 /uL (4.18-5.48); Red Cell Distribution Width 18 % (10-15); White Blood Count 7.6 10^3/uL (3.5-10.8)
[2020-04-12] MEDS: ZOSYN 3.375 GM Q8H per EXTENDED INFUSION IV SCH ×2 (07:42→16:07)
[2020-04-12 08:00] LABS: Albumin 3.2 g/dL (3.2-5.2); BUN/Creatinine Ratio 7.8 (8-20); Calcium 8.9 mg/dL (8.6-10.3); EGFR African American 91.8 (>60); EGFR Non-African American 75.8 (>60); Globulin 3.2 g/dL (2-4); Potassium 4.1 mmol/L (3.5-5.0); Total Bilirubin 0.3 mg/dL (0.2-1.0); Total Protein 6.4 g/dL (6.4-8.9)
[2020-04-12 08:08] LABS: ABS Eosinophils 0.2 10^3/ul (0-0.6); ABS Lymphocytes 0.7 10^3/ul (1.0-4.8); ABS Monocytes 0.7 10^3/ul (0-0.8); Eosinophil % 2.8 %; Lymphocyte % 8.9 %; Nucleated Red Blood Cells % 0.2
[2020-04-12] MEDS: Rivaroxaban 20 mg TAB (*) PO SCH (16:06)
[2020-04-12] MEDS: SIROLIMUS 1 MG PO SCH (16:40)
[2020-04-13] MEDS: ZOSYN 3.375 GM Q8H per EXTENDED INFUSION IV SCH ×3 (00:21→17:15)
[2020-04-13 04:54] LABS: Hematocrit 29 % (42-52); Hemoglobin 10.1 g/dL (14.0-18.0); Mean Corpuscular HGB Conc 35 g/dL (31-36); Mean Corpuscular Hemoglobin 32 pg (27-31); Mean Corpuscular Volume 93 fL (80-94); Mean Platelet Volume 7.6 fL (7.4-10.4); Platelet Count 271 10^3/uL (150-450); Red Blood Count 3.13 10^6 /uL (4.18-5.48); Red Cell Distribution Width 18 % (10-15); White Blood Count 8.2 10^3/uL (3.5-10.8)
[2020-04-13 05:09] LABS: BUN/Creatinine Ratio 7.1 (8-20); Calcium 8.9 mg/dL (8.6-10.3); EGFR African American 81.5 (>60); EGFR Non-African American 67.4 (>60); Potassium 4.1 mmol/L (3.5-5.0)
[2020-04-13 05:24] LABS: ABS Basophils 0.1 10^3/ul (0-0.2); ABS Eosinophils 0.2 10^3/ul (0-0.6); ABS Lymphocytes 0.8 10^3/ul (1.0-4.8); ABS Monocytes 0.7 10^3/ul (0-0.8); Eosinophil % 2.7 %; Lymphocyte % 9.4 %; Nucleated Red Blood Cells % 0.3
[2020-04-13] MEDS ORDERED: Gadoteridol (CONTRAST) 279.3 MG/ML 10 ML IV ONE (13:30)
[2020-04-13] MEDS: Rivaroxaban 20 mg TAB (*) PO SCH (14:14)
[2020-04-13] MEDS: SIROLIMUS 1 MG PO SCH (14:14)
[2020-04-14] MEDS: ZOSYN 3.375 GM Q8H per EXTENDED INFUSION IV SCH ×4 (01:37→23:24)
[2020-04-14 11:37] LABS: Hematocrit 31 % (42-52); Hemoglobin 10.5 g/dL (14.0-18.0); Mean Corpuscular HGB Conc 34 g/dL (31-36); Mean Corpuscular Hemoglobin 32 pg (27-31); Mean Corpuscular Volume 92 fL (80-94); Mean Platelet Volume 7.4 fL (7.4-10.4); Platelet Count 365 10^3/uL (150-450); Red Cell Distribution Width 18 % (10-15); White Blood Count 11.9 10^3/uL (3.5-10.8)
[2020-04-14 11:57] LABS: Albumin 3.8 g/dL (3.2-5.2); BUN/Creatinine Ratio 14.9 (8-20); Calcium 9.4 mg/dL (8.6-10.3); EGFR African American 92.8 (>60); EGFR Non-African American 76.7 (>60); Globulin 3.7 g/dL (2-4); Potassium 3.7 mmol/L (3.5-5.0); Total Bilirubin 0.3 mg/dL (0.2-1.0); Total Protein 7.5 g/dL (6.4-8.9)
[2020-04-14 12:07] LABS: Polychromasia 1+
[2020-04-14 12:08] LABS: ABS Basophils 0.1 10^3/ul (0-0.2); ABS Eosinophils 0.3 10^3/ul (0-0.6); ABS Lymphocytes 0.7 10^3/ul (1.0-4.8); Eosinophil % 2.6 %; Lymphocyte % 6.3 %; Nucleated Red Blood Cells % 0.1
[2020-04-14] MEDS: SIROLIMUS 1 MG PO SCH (17:24)
[2020-04-14] MEDS: Rivaroxaban 20 mg TAB (*) PO SCH (17:24)
[2020-04-15 06:43] LABS: Hematocrit 28 % (42-52); Hemoglobin 9.6 g/dL (14.0-18.0); Mean Corpuscular HGB Conc 34 g/dL (31-36); Mean Corpuscular Hemoglobin 32 pg (27-31); Mean Corpuscular Volume 93 fL (80-94); Mean Platelet Volume 7.5 fL (7.4-10.4); Platelet Count 377 10^3/uL (150-450); Red Blood Count 3.02 10^6 /uL (4.18-5.48); Red Cell Distribution Width 18 % (10-15); White Blood Count 11.9 10^3/uL (3.5-10.8)
[2020-04-15 07:02] LABS: Albumin 3.2 g/dL (3.2-5.2); BUN/Creatinine Ratio 16.2 (8-20); Calcium 9.1 mg/dL (8.6-10.3); EGFR Non-African American 78.5 (>60); Globulin 3.3 g/dL (2-4); Potassium 3.7 mmol/L (3.5-5.0); Total Bilirubin 0.2 mg/dL (0.2-1.0); Total Protein 6.5 g/dL (6.4-8.9)
[2020-04-15] MEDS: ZOSYN 3.375 GM Q8H per EXTENDED INFUSION IV SCH (08:02)
[2020-04-15 10:05] LABS: Polychromasia 1+
[2020-04-15 10:06] LABS: ABS Basophils 0.1 10^3/ul (0-0.2); ABS Eosinophils 0.3 10^3/ul (0-0.6); ABS Lymphocytes 0.9 10^3/ul (1.0-4.8); ABS Monocytes 1.2 10^3/ul (0-0.8); Eosinophil % 2.9 %; Lymphocyte % 7.2 %; Nucleated Red Blood Cells % 0.2
[2020-04-15 12:50] VITALS: BP 127/80
== END 2020-04-15 13:44 | disposition home or self-care (01) | DRG 139 ==
LOC: CHOA 11:41 → MED 11:41 → MEDTELE 04-12 07:25
PROVIDERS: ADMIT Internal Medicine Hematology & Oncology; ATTEND Internal Medicine Hematology & Oncology